=== PATIENT | male | born 1955 | race Caucasian/White ===

== ENCOUNTER 2016-08-18 14:18 | Inpatient (IN) | payer MEDICARE, OTHER ==
--- NOTE | ~2016-08-18 | DS ---
Unit #: [id number] #: [id number] Patient: BETTYE RAMIREZ [id number] [address] [place], [place] [address] [id number] MR#: [id number] NAME: BETTYE RAMIREZ ROOM: [facility] Age: 61 Sex: M Admission Date: 08/18/2016 : 1955 Discharge Date: 08/21/2016 Attending Physician: Lavinia Vail M.D. Primary Care Physician: Marquis Gutierrez M.D. DISCHARGE SUMMARY PRINCIPAL DIAGNOSES 1. Nausea, vomiting, likely multifactorial. 2. Acute hypoactive delirium. 3. Hypokalemia. 4. Memory loss, likely alcohol induced. 5. Status post fall without sequelae. 6. Hypocalcemia. 7. Chronic alcohol abuse without evidence of dependence or withdrawal. 8. Vitamin B12 deficiency with vitamin B12 level of 332. 9. History of deep venous thrombosis, maintained on Lovenox therapy. 10. Left breast mass requiring outpatient evaluation. 11. Depression. 12. Tobaccoism. CONSULTANTS Dr. Orr - Gastroenterology. PROCEDURES 1. EGD on August 20, 2016, with prepyloric antral moderate gastritis. No evidence of varies or portal hypertensive gastropathy. 2. Colonoscopy on August 20, 2016, with mild sigmoid diverticulosis. Diminutive descending colon polyp which was excised, pathology pending. No stigmata of liver disease. 3. CT of the head without contrast on August 18, 2016, with generalized atrophy. There is a small colloid cyst 4 mm in the roof of the anterior aspect of the third ventricle that is stable. 4. CT of abdomen and pelvis without contrast on August 18, 2016, with tiny diverticula in the descending distal colon and asymmetrical left breast tissue measuring 2.6 x 5 x 3.9 cm. Degenerative changes of the spine noted. 5. CT of the head without contrast on August 19, 2016, again without any acute abnormality. 6. MRI of the brain with and without contrast on August 19, 2016, with nonspecific white matter change. No evidence of hemorrhage or mass. CLINICAL HISTORY/HOSPITAL COURSE Mr. Ramirez is a 61-year-old male brought in by his family after he was having nausea, vomiting, weight loss and worsening memory symptoms. Please refer to H and P for further details. CT scan of the abdomen and pelvis and CT scan of the head in the emergency department are unremarkable. Lab work reveals some mild hypokalemia and there are concerns about possible urinary tract infection. The patient was admitted. Unit #: [id number] #: [id number] Patient: BETTYE RAMIREZ The patient was started on IV fluids and made NPO. Dr. Orr was consulted. The patient was started on a diet prior to EGD and colonoscopy and he was able to hold this down after IV hydration. EGD and colonoscopy were done without any significant findings. The patient will continue on PPI therapy at home. His nausea and vomiting have resolved and I think perhaps this is viral in origin to begin with but then exacerbated by some dehydration which is now resolved. In regards to patient's possible urinary tract infection, he was placed empirically on antibiotics but urine culture was never done. The patient has remained afebrile and I doubt he has any UTI. In regards to patient's memory loss, he underwent extensive workup and the only significant finding was a mildly low vitamin B12 level. MRI of the brain was negative. I have discussed with patient's sisters on several days but I suspect his underlying memory loss, which is short-term, is related to chronic alcohol abuse. Will continue on B12 and needs to continue alcohol cessation. The patient is currently living with his son and should be monitored close by family. There are plans initially to discharge patient to rehab but patient, today, is now more awake, ambulating in the [place] and will be discharged home. The patient's family does endorse some symptoms of depression. He doesn't like to leave the home, he is not eating much, he is sleeping more and I am uncertain whether this represents underlying depression, whether it is a side effect of alcohol or perhaps he is drinking because he is depressed. I have placed him on a low dose of Zoloft and I think mood can be monitored as an outpatient. DISCHARGE CONDITION Stable. DISCHARGE STATUS Discharge to home. DISCHARGE MEDICATIONS 1. Zoloft 25 mg p.o. daily with one refill. 2. Bactroban ointment topically to left knee twice daily for another five days. 3. Lovenox 80 mg subcutaneously every 24 hours. 4. Neurontin 600 mg, half a tablet p.o. t.i.d. 5. A daily multivitamin. 6. Omeprazole 20 mg daily. 7. Vitamin B12 1000 mcg p.o. daily. DISCHARGE INSTRUCTIONS The patient was instructed to follow a high protein diet, to refrain from any further alcohol or tobacco use. He can increase his activity as tolerated. FOLLOWUP The patient is to follow up with his primary care provider at [facility] in two weeks. Can re-evaluate his depression at that time. Unit #: [id number] #: [id number] Patient: BETTYE RAMIREZ Dictated by... Lavinia Vail M.D. KERRI/amy TD: 08/22/2016 08:01 JOB #: [id number] DISCHARGE SUMMARY Page 1 of 1 X Lavinia Vail MD X DISCHARGE SUMMARY
--- NOTE | ~2016-08-18 | CT4 ---
[facility] A Service of [facility] RADIOLOGY TEXT RESULTS PATIENT: BETTYE RAMIREZ LOCATION: C3A 307- : 55 UNIT #: [id number] AGE: [address]: Lavinia Vail MD SEX: M ORDER DR: [id number] [facility] [address] [facility]. [place], [place] [address] [id number] I MR#: [id number] Acc #: [id number] NAME: BETTYE RAMIREZ : 1955 SEX: M STUDY DATE/TIME: 08/18/2016 18:50 UNIT: C3A PCU ROOM: [facility] STUDY DESCRIPTION: CT Abd and Pelv Wo Cont Attending Physician: Lavinia Vail M.D. Ordering Physician: Marie Campos M.D. Primary Care Physician: Marquis Gutierrez M.D. MEDICAL IMAGING REPORT This report is preliminary unless electronic signature is present EXAM CT of the abdomen and pelvis without contrast dated 08/18/[address] abdomen and pelvis with contrast dated 11/05/2013 HISTORY Memory loss 4-6 weeks with confusion. Patient is forgetting to eat. Complains of nausea and vomiting, along with abdominal pain in the mid region for month. TECHNIQUE CT of the abdomen and pelvis were obtained without IV or oral contrast in the axial plane as per the protocol. Sagittal and coronal reformats were then obtained. This CT exam was performed with one or more of the following radiation dose reduction techniques: automatic exposure control, adjustment of mA and/or kV according to patient size, and iterative reconstruction. FINDINGS LOWER CHEST: Minimal subsegmental atelectasis/mild scarring in the right lung base. No patchy dense consolidation, pleural effusion or pneumothorax. Heart is of normal size. There is a small hiatal hernia. In the region of the left breast, there is asymmetrical prominence measuring 2.6 x 5.0 cm. It has a Hounsfield unit of 25, unlike a simple cyst. No adjacent significant underlying subcutaneous fat stranding is seen. There is a small 5.0 mm nodule noted along the posterior and superior aspect of the left side of this lesion in image 1, series 2. No significant adenopathy is noted in the visualized inferior bilateral axilla. ABDOMEN: Status post cholecystectomy. Appendix is within normal limits. [facility] A Service of [facility] RADIOLOGY TEXT RESULTS PATIENT: BETTYE RAMIREZ LOCATION: C3A PC 307-01 : 55 UNIT #: [id number] AGE: [address]: Lavinia Vail MD SEX: M ORDER DR: No renal stones or hydronephrosis. No ureteral stone or hydroureters. Lack of IV contrast limits evaluation. The liver, spleen, adrenal glands, pancreas do not demonstrate any significant abnormality in this noncontrasted study. Lack of oral contrast limits evaluation of bowel loops. No evidence of bowel obstruction, free fluid or free air. Diverticula are noted in the colon particularly in the descending and adjacent rectosigmoid colon along the left lower quadrant. They are very few in number without any evidence of acute inflammation. No evidence of aortic aneurysm. Atherosclerotic arteriovascular calcifications are noted involving the aorta and its branches. Degenerative changes are noted in the spine particularly in the lumbosacral region. PELVIS: Urinary bladder is predominantly decompressed. No urinary stones. Seminal vesicles are unremarkable. Central calcifications are in the prostate. Bowel loops are unremarkable too. IMPRESSION 1. No renal, ureteral or urinary bladder stones. 2. No hydronephrosis or hydroureters. 3. Status post cholecystectomy. Normal appendix. 4. Suspicious few tiny diverticula in the descending distal colon and adjacent rectosigmoid colon without evidence of acute diverticulitis. 5. There is asymmetrical prominent left breast tissue/lesion measuring 2.6 x 5.0 x 3.9 cm with another small 5.0 mm soft tissue nodule along the left posterolateral and superior aspect of this tissue. It was also noted in the prior CT from 11/05/2013 where it measured 2.3 x 4.3 cm and was included in completion then. Here it is incompletely included but it still appears to be slightly larger. It could be related to gynecomastia. Correlate clinically. 6. Mild degenerative changes in the spine. Dictated by... Liu Soto M.D. THIS IS AN ELECTRONICALLY VERIFIED REPORT Liu Soto M.D. at 08/21/2016 3:33 PM CPR/rickie TD: 08/19/2016 09:40 JOB #: [id number] MEDICAL IMAGING REPORT Page 1 of 1 COPY
--- NOTE | ~2016-08-18 | MR17 ---
[facility] A Service of [facility] RADIOLOGY TEXT RESULTS PATIENT: BETTYE RAMIREZ LOCATION: C3A 307- : 55 UNIT #: [id number] AGE: [address]: Lavinia Vail MD SEX: M ORDER DR: [id number] [facility] [address] [facility]. [place], [place] [address] [id number] I MR#: [id number] Acc #: [id number] NAME: BETTYE RAMIREZ : 1955 SEX: M STUDY DATE/TIME: 08/19/2016 11:31 UNIT: C3A PCU ROOM: [facility] STUDY DESCRIPTION: MR Brain WWo Contrast Attending Physician: Lavinia Vail M.D. Ordering Physician: Alyssa Willson M.D. Primary Care Physician: Marquis Gutierrez M.D. MRI CENTER REPORT This report is preliminary unless electronic signature is present. EXAM Brain MRI with and without contrast, date 08/19/2016. PROCEDURE Routine brain MR with and without contrast. COMPARISON Head CT dated 08/19/2016 and prior head CTs dating back to 09/13/2014. CLINICAL HISTORY 4-6 week history of memory loss; recent fall August 19. FINDINGS There is no MR evidence of acute ischemia. There is no restricted diffusion. There is no hydrocephalus or extraaxial fluid collection. A small colloid cyst at the foramen of Sara is redemonstrated, as seen on CT. It measures about 4 mm in maximal dimension. There is volume loss, but no hydrocephalus. Postcontrast images show no mass or abnormal enhancement. There are minimal nonspecific white matter changes, but no acute intracranial abnormality is seen. Normal flow voids are seen in the cerebral vessels. Incidental note made of right sphenoid sinus mucosal thickening. IMPRESSION Mild nonspecific white matter change, but no hemorrhage or mass or acute ischemia, and though there is a small about 4 mm colloid cyst at the foramen of Sara, unchanged since CTs dating back to at least September 18, 2014, there is no hydrocephalus or other acute abnormality. Dictated by... Melo Nunes M.D. [facility] A Service of [facility] RADIOLOGY TEXT RESULTS PATIENT: BETTYE RAMIREZ LOCATION: [facility]- : 55 UNIT #: [id number] AGE: [address]: Laivnia Vail MD SEX: M ORDER DR: THIS IS AN ELECTRONICALLY VERIFIED REPORT Melo Nunes M.D. at 08/21/2016 4:28 PM EDIN/daniel TD: 08/19/2016 16:07 JOB #: [id number] MRI CENTER REPORT Page 1 of 1 COPY
--- NOTE | ~2016-08-18 | CO ---
Unit #: [id number] #: [id number] Patient: BETTYE RAMIREZ [id number] [address] [place], [place] [address] [id number] I MR#: [id number] NAME: BETTYE RAMIREZ ROOM: 307 Age: 61 Sex: M Admission Date: 08/18/2016 : 1955 Attending Physician: Lavinia Vail M.D. Primary Care Physician: Marquis Gutierrez M.D. Consultation Date: 08/19/2016 CONSULTATION REPORT PRIMARY CARE PHYSICIAN Marquis Gutierrez M.D. REASON FOR CONSULTATION Intractable nausea, vomiting, diarrhea, weight loss. HISTORY OF PRESENT ILLNESS Mr. Ramirez is a 61-year-old white gentleman, who is a heavy drinker of alcohol. The patient has presented with history of DVT. He has longstanding history of deep vein thrombosis, on long-term anticoagulation with Lovenox. He presents with couple of months history of nausea, vomiting, diarrhea, and weight loss about 20 pounds. There is no history of dysphagia or abdominal pain nor any history of overt GI bleed. He does drink 6 to 12 beers on a daily basis. The patient is extremely poor historian. PAST MEDICAL HISTORY Significant for chronic ethanol abuse; history of cardiac ablation in the past; also history of DVT and superficial thrombosis, on long-term anticoagulation. PAST SURGICAL HISTORY Included cholecystectomy. MEDICATIONS At home included Lovenox 80 mg subcutaneously daily, Neurontin 600 mg p.o. t.i.d., Robaxin, Prilosec 20 mg p.o. daily. ALLERGIES He has no known drug allergies. FAMILY HISTORY Significant for congestive heart failure and cardiomyopathy. SOCIAL HISTORY Lives at home with his son. He drinks between 6 to 12 beers a day and smokes 1 to 1-1/2 pack of cigarette daily. REVIEW OF SYSTEMS Detailed review of organ systems does reveals significant weight loss about 20 pounds. There is no history of fever, chills, or rigors. No history of headache, seizures, chest pain, or syncope. No history of cough, expectoration, or hemoptysis. No history of dysuria, hematuria, or pyuria. No history of focal seizures or extremity weakness. Unit #: [id number] #: [id number] Patient: BETTYE RAMIREZ PHYSICAL EXAMINATION GENERAL: He is awake, alert, and oriented. VITAL SIGNS: Stable with a temperature of 98.3, pulse is 65 per minute and regular, respiratory rate is 18, blood pressure is 120/87. He weighs 182 pounds, baseline weight has been about 204 pounds in the past. HEENT: He has mild pallor. There being no icterus, lymphadenopathy, or peripheral edema. CARDIOVASCULAR: Normal heart sounds. No murmurs. LUNGS: Auscultation over the lungs reveal normal breath sounds. Good air entry. ABDOMEN: Soft and nontender. Liver and spleen are not palpable. Bowel sounds normal. DIAGNOSTIC STUDIES LABORATORY RESULTS: Shows a CBC which is completely normal and serum potassium of 2.8. His albumin is 3.3. AST and ALT are normal. Alkaline phosphatase is 100. Ammonia level is normal. CLINICAL IMPRESSION The patient with significant nausea and vomiting, but symptoms suggestive of gastric outlet obstruction, also has significant weight loss on a background of ethanol abuse. He has never done a screening colonoscopy in the past. Under the circumstances, it will be reasonable for him to proceed with an upper endoscopy and a colonoscopy in the next 12 to 24 hours. The pros and cons of procedure, potential risks, complications discussed with the patient and the family, and they were reassured. Thank you very much for asking me to see this pleasant gentleman. I appreciate the consult. Dictated by... Sharath Busch/carlos TD: 08/21/2016 02:40 JOB #: [id number] CC: Sharath Jones M.D. CONSULTATION REPORT Page 1 of 1 X Luis Orr MD X CONSULTATION REPORT
--- NOTE | ~2016-08-18 | CT71 ---
[facility] A Service of [facility] RADIOLOGY TEXT RESULTS PATIENT: BETTYE RAMIREZ LOCATION: [facility] : 55 UNIT #: [id number] AGE: [address]: Lavinia Vail MD SEX: M ORDER DR: [id number] [facility] [address] [facility]. [place], [place] [address] [id number] I MR#: [id number] Acc #: [id number] NAME: BETTYE RAMIREZ : 1955 SEX: M STUDY DATE/TIME: 08/18/2016 16:09 UNIT: A PC ROOM: [facility] STUDY DESCRIPTION: CT Head Wo Contrast Attending Physician: Alyssa Willson M.D. Ordering Physician: Marie Campos M.D. Primary Care Physician: Marquis Gutierrez M.D. MEDICAL IMAGING REPORT This report is preliminary unless electronic signature is present EXAM CT brain without contrast media, 08/18 COMPARISON 09/13/2014 HISTORY Memory loss 4-6 weeks, confusion. TECHNIQUE Axial imaging of the brain was performed without contrast media. This CT exam was performed with one or more of the following radiation dose reduction techniques: Automatic exposure control, adjustment of mA and/or kV according to patient size, and iterative reconstruction. FINDINGS Ventricular size and configuration remains normal. Examination shows a small hyperdense lesion in the anterior roof of the third ventricle measuring 4 mm in size. It has not changed and is consistent with a small colloid cyst. No other mass lesions, mass effect, acute hemorrhage or edema. There is evidence of mucosal disease in the right maxillary and right sphenoid sinus. CONCLUSION 1. Generalized atrophy. 2. Small colloid cyst measuring 4 mm in the roof of the anterior aspect of the third ventricle, unchanged. 3. Right maxillary and right sphenoid sinus disease. Dictated by... Erik Andrade M.D. [facility] A Service of [facility] RADIOLOGY TEXT RESULTS PATIENT: BETTYE RAMIREZ LOCATION: [facility] : 55 UNIT #: [id number] AGE: [address]: Lavinia Vail MD SEX: M ORDER DR: THIS IS AN ELECTRONICALLY VERIFIED REPORT Erik Andrade M.D. at 08/19/2016 7:13 AM TIMOTHY/anjali TD: 08/19/2016 03:28 JOB #: [id number] MEDICAL IMAGING REPORT Page 1 of 1 COPY
--- NOTE | ~2016-08-18 | EKG ---
PATIENT: BETTYE RAMIREZ UNIT #: [id number] Ventricular Rate: 68 BPM Atrial Rate: 68 BPM P-R Interval: 154 ms QRS Duration: 82 ms Q-T Interval: 420 ms QTC Calculation(Bezet): 446 ms P Durham: 44 degrees Calculated R Durham: 26 degrees Calculated T Durham: 50 degrees Diagnosis Line: Normal sinus rhythm Diagnosis Line: Normal ECG Diagnosis Line: When compared with ECG of 15-AUG-2014 17:46, Diagnosis Line: No significant change was found Diagnosis Line: Confirmed by KLEBER LAZO MD ([id number]) on Diagnosis Line: 08/18/2016 10:20:57 PM INTERPRETING MD: ZEHRA
--- NOTE | ~2016-08-18 | CO ---
Unit #: [id number] #: [id number] Patient: BETTYE RAMIREZ [id number] [address] [place], [place] [address] [id number] I MR#: [id number] NAME: BETTYE RAMIREZ ROOM: 307 Age: 61 Sex: M Admission Date: 08/18/2016 : 1955 Attending Physician: Lavinia Vail M.D. Primary Care Physician: Marquis Gutierrez M.D. CONSULTATION REPORT DICTATED FOR Luis Orr M.D. PRIMARY CARE PHYSICIAN Marquis Gutierrez M.D. REASON FOR CONSULTATION Nausea, vomiting, and weight loss. HISTORY OF PRESENT ILLNESS The patient is a 61-year-old male with past medical history of DVT, on chronic anticoagulation and alcohol abuse. The patient has been admitted with a 2-month history of persistent nausea, vomiting, and weight loss. The patient is a very poor historian, most of the history is obtained from his sister and daughter at the bedside. According to his family, he had been doing well up until about 2 months ago when he started to have persistent nausea, vomiting, and memory issues. His appetite has also decreased and he has lost about 20 pounds in 2 months. He also has been having intermittent diarrhea mostly postprandial. There is no history of fever, chills, abdominal pain, or overt gastrointestinal blood loss in the form of hematemesis, melena, or hematochezia. PAST MEDICAL HISTORY Includes chronic alcohol abuse, history of cardiac ablation, DVT on chronic anticoagulation. PAST SURGICAL HISTORY Cholecystectomy and cardiac ablation. ALLERGIES No known drug allergies. HOME MEDICATIONS Include Prilosec, Lovenox, Neurontin, and Robaxin. FAMILY HISTORY None for colon or pancreatic cancer, or liver disease. SOCIAL HISTORY The patient lives with his son. He drinks between 6 to 12 beers a day. He smokes 1 to 2 packs of tobacco a day. No history of illicit drugs. REVIEW OF SYSTEMS Detailed review of system is difficult to obtain from the patient, as he Unit #: [id number] #: [id number] Patient: BETTYE RAMIREZ is a very poor historian. Dictated by... MINERVA Rangel/gamaliell TD: 08/20/2016 02:35 JOB #: [id number] CONTINUATION PHYSICAL EXAMINATION GENERAL: The patient is awake, alert, ambulatory. He does have mild confusion. VITAL SIGNS: Stable with temperature 97.3, blood pressure 111/75, heart rate 65, respirations 18. HEENT: There is no pallor, no scleral icterus, no lymphadenopathy. CARDIOVASCULAR: Regular rate and rhythm. LUNGS: Clear to auscultation bilaterally. ABDOMEN: Soft, nontender. Liver and spleen are not palpable. Bowel sounds are normal. DIAGNOSTIC STUDIES LABORATORY RESULTS: Basic metabolic panel notable for potassium 2.8, otherwise unremarkable. LFTs on admission were within normal limits. INR 1.2. CBC within normal limits. Urinalysis show 1+ leukocyte esterase, positive nitrites, trace protein, and culture is pending at this time. IMAGING STUDIES: Abdominal CT showed diverticulosis, no evidence of acute inflammation. Head CT showed no acute abnormality. Brain MRI showed mild nonspecific white matter change, but no acute findings. CLINICAL IMPRESSION AND PLAN The patient with persistent nausea, vomiting, diarrhea, and weight loss. Differentials include peptic ulcer disease, gastric outlet obstruction, inflammatory bowel disease, and also malignancy. It is noteworthy, the patient has never had a colonoscopy in the past. In this case an upper GI endoscopy and colonoscopy are recommended. The patient and plan of care discussed in detail with Dr. Orr. For further recommendations to follow. Thank you very much for asking us to see this patient. We appreciate the consult. Dictated by.Yudith. MINERVA Rangel/carlos TD: 08/20/2016 03:18 JOB #: [id number] Unit #: [id number] #: [id number] Patient: BETTYE RAMIREZ CONSULTATION REPORT Page 1 of 1 X X CONSULTATION REPORT
--- NOTE | ~2016-08-18 | OR ---
Unit #: [id number] #: [id number] Patient: BETTYE RAMIREZ [id number] [address] [address] [id number] I MR#: [id number] NAME: BETTYE RAMIREZ ROOM: [facility] Date of Procedure: 08/20/2016 Admission Date: 08/18/2016 Surgeon: Luis Orr M.D. : 1955 Attending Physician: Lavinia Vail M.D. Primary Care Physician: Marquis Gutierrez M.D. OPERATIVE REPORT ADDITIONAL ATTENDING PHYSICIAN Lavinia Vail M.D. PREOPERATIVE DIAGNOSES Nausea and vomiting as well as significant weight loss and diarrhea. PROCEDURE PERFORMED Upper gastrointestinal endoscopy and biopsy as well as colonoscopy and biopsies. POSTOPERATIVE DIAGNOSES For upper endoscopy: 1. The patient had prepyloric antral moderate gastritis. This was in the form of erythema, erythematous streaks, and linear erosions in the antral area. Otherwise, examination normal up to third part of duodenum. Biopsies obtained from the antrum for CLOtest. Specifically, no esophageal varices nor any changes of portal hypertensive gastropathy were seen. For colonoscopy: 1. Mild sigmoid diverticulosis. 2. Single diminutive descending colon polyp, which was a 1 cm in size. It was removed using cold biopsy forceps. 3. Rest of the examination up to cecum and terminal ileum was normal. The quality of the prep was good. Multiple random colonic biopsies obtained from throughout the colon to rule out microscopic or collagenous colitis. 4. It is noteworthy that the patient had no stigmata of liver disease in the upper gastrointestinal endoscopy. SEDATION USED MAC. RECOMMENDATIONS Resume Lovenox, high protein diet and CBC and CMP in the morning. DESCRIPTION OF PROCEDURE Following detailed explanation of the potential risks and complications of an upper endoscopy and a colonoscopy, namely perforation, bleeding, and complications related to sedation, the patient was brought to GI lab and laid in the left lateral decubitus position. Lubricated tip of the Olympus video upper endoscope was passed through bite block into the proximal esophagus under direct vision. The entire esophageal mucosa was Unit #: [id number] #: [id number] Patient: BETTYE RAMIREZ examined and appeared normal. Z-line was nicely demarcated. There being no esophagitis or hiatus hernia. The patient did not have any esophageal varices. The scope was advanced into the gastric cavity and the latter was insufflated. Mucosa of the fundus, body, and antrum examined. Prepyloric antral erythema erosions and erythematous streaks noted indicating antral gastritis. Pylorus was intubated with visualization of normal duodenal bulb and second and third part of the duodenum. Upon withdrawal and retroflexion, incisura, cardia, and greater curve examined and no additional findings noted. Biopsies obtained from the antrum for CLOtest. The scope was then withdrawn in the distal esophagus. The entire esophageal mucosa was examined all the way up to pharynx. No additional findings noted. The examination table was then turned by 180 degrees and the patient was positioned for a colonoscopy. A digital rectal examination was performed, which was normal. Lubricated tip of the Olympus video colonoscope was inserted through the anus and advanced under direct vision. The scope was advanced and passed up to sigmoid into descending colon. Multiple small to medium-sized diverticula were seen in this area. The scope tip was then navigated all the way up to cecum with visualization of ileocecal valve and the appendiceal orifice. Preparation was good with good visualization and photodocumentation was obtained. Last few inches of terminal ileum also visualized after intubation of the ileocecal valve and appeared normal. Successive segments of the colonic mucosa were examined upon withdrawal and appeared unremarkable except for a single diminutive polyp in the descending colon. The latter was removed using cold biopsy forceps. Multiple random colonic biopsies obtained from throughout the colon to rule out microscopic or collagenous colitis. Other than these left-sided diverticula, no other additional abnormalities noted. The patient did not have any hemorrhoids at anal verge. The scope was then withdrawn. The patient returned to the recovery area. He tolerated the procedure without any postprocedure complications. Dictated by... Sharath Busch/carlos TD: 08/21/2016 01:22 JOB #: [id number] Alyssa Willson M.D. OPERATIVE REPORT Page 1 of 1 X Luis Orr MD PROCEDURE OPERATIVE NOTE
--- NOTE | ~2016-08-18 | A ---
[facility] Nutrition Therapy DATE: 08/19/16 Patient: BETTYE RAMIREZ Physician: DARRIAN Address: [address] Room/Bed: [address] [place] [address], Zip: [place] [address] Admit Date: 08/18/16 Date of : 55 Height: 5 11 Weight: 180 81.8 NUTRITIONAL ASSESSMENT: REASON: 3 nutritional risk points re: 20# unintentional weight loss Dx: Altered mental status, nausea/vomiting, weight loss, ETOH abuse PMH: DVT, cardiac ablasion, cholecystectomy Anthropometrics: ht: 5'11" wt: 180# BMI 25 Labs: K+ 2.8, BUN <5, Creat 0.4, Ca++ 8.1, Alb 3.3, NH3+ <9, Lip 17 Meds: protonix, nicotine transdermal, mag-sulfate, rocephin, neurotin, zofran, ativan, NaCl I/O & Bowel function: 900/1. BM 08/18 (diarrhea) Skin Integrity: scab- left knee, tattoo- back/arms Diet: NPO Assessment: Chart reviewed, events noted. 61 y/o male admitted for altered mental status, n/v, and weight loss. RD international trade specialist spoke with pt and pt's sister at bedside. Pt's sister reported that the pt has lost 20# in the past few months due to poor appetite and n/v/d when trying to eat. He has also had confusion and memory loss. She states that the pt has not had a full meal in a several days, only tolerating a small amount of liquids. The pt is currently NPO awaiting a possible EGD. RD international trade specialist discussed ordering supplements for the pt once his diet is advanced, and the pt's sister agreed to ensure and magic Cup. Please see recommendations. RD will continue to follow. Dx: 1) Inadequate oral intake r/t poor appetite, n/v/d AEB pt reported poor intake, unintented weight loss 2) Unintentional weight loss r/t poor appetite, n/v/d AEB pt reported 20# (10% BW) weight loss Intervention: 1. supplements once diet advances Monitoring, Evaluation and Goals: 1. Oral intake; once diet is advanced, tolerate/consume >50% of all meals and/or supplements [facility] Nutrition Therapy DATE: 08/19/16 Patient: BETTYE RAMIREZ Physician: DARRIAN Address: [address] Room/Bed: [address] [place] [address], Zip: [place] [address] Admit Date: 08/18/16 Date of : [birth year] Height: 5 11 Weight: 180 81.8 2. Weight; prevent further unintentional weight loss, promote healthy weight maintenance 3. GI; promote regular GI function 4. Improve labs; K+, BUN, Creat, Ca++, Alb, NH3+, Lip Recommendations: 1. Once diet is advanced to clear liquid diet, please order ensure clear apple TID. 2. Once diet is advanced to full liquid diet or solid foods, please order ensure vanilla TID + Magic Cup with dinner. RD will follow up to make appropriate dietary recommendations pending results of EGD. 3. Encourage adequate PO intake as tolerated once diet advances. 4. Consider adding a MVI + minerals to the pt's medication regimen. RD will f/u per protocol as pt is at moderate nutritional risk. Respectfully, YURY LYMAN, internet security specialist Vivi Gray, SANDIE, LD [employer] [facility] cc: client file
--- NOTE | ~2016-08-18 | CT71 ---
[facility] A Service [facility] RADIOLOGY TEXT RESULTS PATIENT: BETTYE RAMIREZ LOCATION: [facility] 307- : [birth year] UNIT #: [id number] AGE: [address]: Lavinia Vail MD SEX: M ORDER DR: [id number] [facility] [address] [facility]. [place], [place] [address] [id number] I MR#: [id number] Acc #: [id number] NAME: BETTYE RAMIREZ : 1955 SEX: M STUDY DATE/TIME: 08/19/2016 UNIT: [address] ROOM: [facility] STUDY DESCRIPTION: CT Head Wo Contrast Attending Physician: Lavinia Vail M.D. Ordering Physician: Alyssa Willson M.D. Primary Care Physician: Marquis Gutierrez M.D. MEDICAL IMAGING REPORT This report is preliminary unless electronic signature is present EXAM Head CT 08/19/2016 at 03:17 INDICATIONS Fell this morning at 03:00 a.m. Pain in the forehead. TECHNIQUE Axial images were obtained from the base to the vertex without contrast. This CT exam was performed with one or more of the following radiation dose reduction techniques: automatic exposure control, adjustment of mA and/or kV according to patient size, and iterative reconstruction. COMPARISON Comparison is made with 08/18/2016. FINDINGS Again seen is generalized atrophy. Ventricular size and configuration are stable. Small potential colloid cyst in the third ventricle is stable. Atherosclerotic calcifications are present in the carotid siphons. No acute infarct or hemorrhage is seen. There are no skull fractures. IMPRESSION No acute abnormality. No change from yesterday's exam. Dictated by... Antwan Bates Jr., M.D. THIS IS AN ELECTRONICALLY VERIFIED REPORT Antwan Bates Jr., M.D. at 08/19/2016 9:23 PM FILEMON/daniel TD: 08/19/2016 12:51 [facility] A Service of [facility] RADIOLOGY TEXT RESULTS PATIENT: BETTYE RAMIREZ LOCATION: [facility] 307-01 : [birth year] UNIT #: [id number] AGE: [address]: Lavinia Vail MD SEX: M ORDER DR: RAVINDER #: [id number] MEDICAL IMAGING REPORT Page 1 of 1 COPY
--- NOTE | ~2016-08-18 | HP ---
Unit #: [id number] #: [id number] Patient: BETTYE RAMIREZ [id number] [facility]. [place], [place] [address] [id number] I MR#: [id number] NAME: BETTYE RAMIREZ ROOM: [facility] Age: 61 Sex: M Admission Date: 08/18/2016 : 1955 Attending Physician: Alyssa Willson M.D. Primary Care Physician: Marquis Gutierrez M.D. HISTORY AND PHYSICAL CHIEF COMPLAINT Intractable nausea and vomiting with weight loss and worsening memory. HISTORY OF PRESENT ILLNESS This pleasant 61-year-old male with DVTs and alcohol abuse is admitted for two months of nausea and vomiting with weight loss and memory issues. The patient himself is a somewhat poor historian, and most of the history is obtained from family by bedside. The patient was in his usual state of health until two months prior to admission when he developed nonbloody nausea, vomiting, anorexia, and a 20-pound weight loss. Denies abdominal pain with the above. Also notes some lightheadedness and dizziness which is mainly postural but also can occur at rest and can be associated with diplopia. Occasional epistaxis. He denies abdominal pain with the above. He was seen at the [facility] a few days ago, and his Lovenox was decreased from twice a day dosing to once a day dosing. Prilosec was added. He continued with symptoms this weekend, and therefore, the family brought him to this emergency department tonight where his workup is fairly unremarkable for a definite cause of his symptoms. His potassium was noted to be low, and he might have a mild UTI. In the ER, he was treated with IV fluids, Zofran, IV Protonix, potassium rally pack, and IV Ativan. He does drink fairly heavily, six to 12 beers a day, but has not drank alcohol for the past three to four days and denies symptoms of withdrawal. PAST MEDICAL HISTORY 1. Chronic alcohol abuse. 2. History of cardiac ablation performed in [place] at the [facility]. 3. History of right leg DVT and superficial thrombosis of the right upper arm after IV medications according to old records. 4. Cholecystectomy. ALLERGIES No known drug allergies. HOME MEDICATIONS 1. Prilosec recently added 20 mg daily. 2. Lovenox decreased to 80 mg subcutaneous daily. 3. Neurontin 600 mg t.i.d. p.r.n. 4. Robaxin. FAMILY HISTORY Cardiomyopathy and congestive heart failure. Unit #: [id number] #: [id number] Patient: BETTYE RAMIREZ SOCIAL HISTORY The patient is living with his son. He drinks between six to 12 beers a day but has not used alcohol for the past three to four days. He smokes one and a half packs per day of tobacco. REVIEW OF SYSTEMS Difficult to obtain as patient himself is a poor historian. PHYSICAL EXAMINATION GENERAL: A pleasant, 61-year-old male who currently is in no acute distress. VITAL SIGNS: Temperature 98.1, pulse 75, respirations 16, blood pressure 109/76, and O2 saturation is 100% on room air. HEENT: Eyes PERRLA. Extraocular muscles are intact. Pharynx is benign. NECK: Supple without adenopathy or thyromegaly. CHEST: Clear. CARDIAC: Normal S1 and S2, without S3, S4, or murmur. ABDOMEN: Bowel sounds are present. Mild hepatomegaly noted on exam. Nontender. No masses. BREASTS: Palpable breast mass at 6 o'clock. It is well circumscribed. EXTREMITIES: Without clubbing, cyanosis, or edema. NEUROLOGIC: Patient is awake and alert. He is oriented to person and place but not to year. His cranial nerves are intact. He has equal strength throughout. A slight essential tremor with [id number]. Negative pronator drift. He is able to stand without assistance. DIAGNOSTIC STUDIES ADMISSION LABORATORY: Hematocrit is 48 with normal white count and platelet count. SMA-12 with sodium of 133, potassium 3, chloride 95, albumin 3.3, and alkaline phosphatase 100. Ammonia level is less than 9. Alcohol less than 5. ABG with pH of 7.57, PCO2 of 28, PO2 of 94, and O2 saturation 99.1% on room air. His cardiac markers are negative. Urine toxicology screen positive for marijuana. Urinalysis positive leukocyte esterase, nitrites, and protein, with 2-5 white cells. IMAGING: Head CT shows atrophy and sinus disease. CT scan of the abdomen and pelvis shows a breast mass which was previously noted on November 15, 2013, and slightly increased in size. CARDIOLOGY: EKG normal sinus rhythm, rate 68, normal appearing. ASSESSMENT 1. Intractable nausea and vomiting with weight loss. 2. Memory loss for the past two months which in part may be related to ethyl alcohol. 3. History of ethyl alcohol abuse, none for the past three to four days. 4. History of deep venous thromboses, on Lovenox. 5. Status post cardiac radiofrequency ablation. 6. Hypokalemia. 7. Left breast mass on exam. 8. Questionable urinary tract infection. PLANS 1. IV fluids. 2. Replace potassium and check magnesium. 3. Check thyroid function tests, VDRL, B12 level, and MRI scan of the brain. 4. Vitamins. Unit #: [id number] #: [id number] Patient: BETTYE RAMIREZ 5. GI to see in consultation. 6. Will need ultrasound and possible biopsy of breast mass at some point. 7. Decrease sedatives. 8. Further workup and consultants depending on above. 1. Dictated by Sharath Arora/uriel TD: 08/18/2016 22:38 JOB #: [id number] HISTORY AND PHYSICAL Page 1 of 1 X Alyssa Willson MD X HISTORY AND PHYSICAL
[~2016-08-18 14:18] MED LIST: ASPIRIN81 M1 PO; BENTYL20 MG PO; BP PILL; CARDIZEM CD180 M1 PO; COMBIVENT U/D3 M1 INH; KEFLEX500 MG PO; LEVSIN0.125 M2 PO; MULTI-VITAMIN1 EAC1 PO; NEURONTIN300 MG PO; NEURONTIN600 MG PO; OMEPRAZOLE40 MG PO; PRILOSEC PO; ROBAXIN500 MG PO; ROBITUSSIN A-C S5 ML PO; TESSALON200 MG PO; TYLENOL325 M1 PO; ULTRAM PO; VICODIN 5/1 TAB 5/50 PO; VOLTAREN75 MG PO; XARELTO15 MG PO; XARELTO20 MG PO
[2016-08-18 16:45] LABS: BASOPHIL% 0.8 % (0-2.5); EOSINOPHIL# 0.1 X10e3 (0-0.7); EOSINOPHIL% 1.1 % (0.0-7.0); HEMOGLOBIN 16.2 gm/dL (13.0-16.0); LYMPHOCYTE# 1.3 X10e3 (1.0-3.5); LYMPHOCYTE% 20.9 % (17.0-45.0); MEAN CELL VOLUME 97.6 FL (83-96); MEAN CORPUSCULAR HGB CONC 33.8 g/dL (30-36); MEAN PLATELET VOLUME 8.1 FL (6.5-11.5); MONOCYTE# 0.4 X10e3 (0-1.0); NEUTROPHIL# 4.5 X10e3 (1.5-7.1); NEUTROPHIL% 71.2 % (40-75); PLATELET COUNT 220 X10e3 (140-420); RED BLOOD COUNT 4.92 X10e (3.90-5.60); RED CELL DISTRIBUTION WIDTH 14.9 % (11.0-15.5); WHITE BLOOD COUNT 6.3 X10e3 (4.0-10.5)
[2016-08-18 16:46] LABS: DIFF IND NO
[2016-08-18 17:08] LABS: INR 1.2; PARTIAL THROMBOPLASTIN TIME 28.5 SECONDS (23.5-31.3); PROTHROMBIN TIME (PATIENT) 12.6 SECONDS (10.0-11.7)
[2016-08-18 17:12] LABS: ALBUMIN SERUM 3.3 g/dL (3.5-5.0); ALKALINE PHOSPHATASE 100 U/L (32-92); ALT (SGPT) 21 U/L (10-40); AST (SGOT) 34 U/L (10-42); BILIRUBIN, DIRECT 0.2 mg/dL (0.0-0.2); BILIRUBIN,INDIRECT 0.7 mg/dL (0.0-0.9); BILIRUBIN,TOTAL 0.9 mg/dL (0.2-2.0); BLOOD UREA NITROGEN <5 mg/dL (9-23); BUN/CREATININE RATIO 7.14; CALCIUM SERUM 8.8 mg/dL (8.4-10.2); CARBON DIOXIDE 27 mmol/L (22-31); CHLORIDE 95 mmol/L (100-111); CREATININE SERUM 0.7 mg/dL (0.6-1.4); GLOM FILT RATE Estimated 101.9 mL/min (>60); GLUCOSE FASTING 107 mg/dL (70-110); SODIUM 133 mmol/L (135-145)
[2016-08-18 17:13] LABS: ALCOHOL BLOOD <5 mg/dL (0)
[2016-08-18 17:45] LABS: ARTERIAL BLD GAS O2 SATURATION 99.1 % (90.0-100.0); ARTERIAL BLOOD GAS CARBOXY HB 3.4 %sat (0.0-9.0); ARTERIAL BLOOD GAS HCO3 25.6 mmol/L; ARTERIAL BLOOD GAS MET HB 0.3 %sat (0.0-2.0); ARTERIAL BLOOD GAS PCO2 27.8 mmHg (35.0-45.0); ARTERIAL BLOOD GAS PO2 93.9 mmHg (80.0-100); ARTERIAL BLOOD GAS pH 7.572 (7.350-7.450)
[2016-08-18 17:46] LABS: ARTERIAL BLOOD GAS ALLEN TEST NORMAL; ARTERIAL BLOOD GAS ART SITE RIGHT RADIAL; ARTERIAL DRAW? YES
[2016-08-18 17:55] LABS: URINE SOURCE CLEAN CATCH
[2016-08-18 18:03] LABS: URINE APPEARANCE CLEAR; URINE BLOOD NEG (NEG); URINE COLOR ORANGE; URINE GLUCOSE NEG (NEG); URINE KETONE TRACE (NEG); URINE LEUKOCYTE ESTERASE 1+ (NEG); URINE NITRATE POS (NEG); URINE PROTEIN TRACE (NEG); URINE SPECIFIC GRAVITY 1.019 (1.003-1.035)
[2016-08-18 18:06] LABS: URINE BACTERIA AUWI NEG (NEGATIVE); URINE SQUAMOUS EPITHELIAL CELL NONE SEEN /[HPF]
[2016-08-18 18:07] LABS: URINE BILIRUBIN NEG (NEG)
[2016-08-18 18:08] LABS: CULTURE INDICATED? NO
[2016-08-18 18:10] LABS: POC - CKMB <1.0 ng/mL (0.0-7.9); POC - TROPONIN <0.05 ng/mL (<=0.05)
[2016-08-18 18:12] LABS: POC - TROPONIN <0.05 ng/mL (<=0.05)
[2016-08-18 18:14] LABS: AMPHETAMINE NEG (NEG); BARBITURATES NEG (NEG); BENZODIAZEPINES NEG (NEG); COCAINE NEG (NEG); MARIJUANA POS (NEG); OPIATES NEG (NEG); TRICYCLIC ANTIDEPRESSANTS NEG (NEG); U METHADONE NEG (NEG)
[2016-08-18] MEDS ORDERED: OMEPRAZOLE20 M2 PO (21:22)
[2016-08-18] MEDS ORDERED: NEURONTIN600 MG PO (21:22)
[2016-08-18] MEDS ORDERED: LOVENOX80 MG/0.8 INJ (21:23)
[2016-08-18] MEDS ORDERED: ROBAXIN (21:23)
[2016-08-18] MEDS ORDERED: PATIENT'S PHARMACY (21:24)
[2016-08-19 05:33] LABS: HEMATOCRIT 41.2 % (38.0-50.0); MEAN CELL VOLUME 97.5 FL (83-96); MEAN CORPUSCULAR HEMOGLOBIN 32.8 PG (28-34); MEAN CORPUSCULAR HGB CONC 33.7 g/dL (30-36); MEAN PLATELET VOLUME 8.6 FL (6.5-11.5); RED BLOOD COUNT 4.23 X10e (3.90-5.60); RED CELL DISTRIBUTION WIDTH 14.8 % (11.0-15.5); WHITE BLOOD COUNT 4.9 X10e3 (4.0-10.5)
[2016-08-19 05:58] LABS: HEMOGLOBIN 13.9 gm/dL (13.0-16.0)
[2016-08-19 06:11] LABS: THYROID STIMULATING HORMONE 1.88 uIU/ml (0.34-5.60)
[2016-08-19 06:18] LABS: FREE THYROXIN (T4) 0.88 ng/dL (0.58-1.64)
[2016-08-19 06:29] LABS: CALCIUM SERUM 8.1 mg/dL (8.4-10.2); CARBON DIOXIDE 27 mmol/L (22-31); CHLORIDE 101 mmol/L (100-111); CREATININE SERUM 0.4 mg/dL (0.6-1.4); GLOM FILT RATE Estimated 128.2 mL/min (>60); GLUCOSE FASTING 81 mg/dL (70-110); MAGNESIUM 1.9 mg/dL (1.6-3.0); SODIUM 136 mmol/L (135-145)
[2016-08-19 06:32] LABS: BLOOD UREA NITROGEN <5 mg/dL (9-23)
[2016-08-19 06:34] LABS: POTASSIUM 2.8 mmol/L (3.5-5.1)
[2016-08-20 05:31] LABS: BASOPHIL# 0.1 X10e3 (0-0.3); EOSINOPHIL# 0.1 X10e3 (0-0.7); EOSINOPHIL% 2.6 % (0.0-7.0); HEMATOCRIT 41.6 % (38.0-50.0); LYMPHOCYTE# 1.1 X10e3 (1.0-3.5); LYMPHOCYTE% 21.6 % (17.0-45.0); MEAN CELL VOLUME 96.8 FL (83-96); MEAN CORPUSCULAR HEMOGLOBIN 32.5 PG (28-34); MEAN CORPUSCULAR HGB CONC 33.6 g/dL (30-36); MEAN PLATELET VOLUME 8.3 FL (6.5-11.5); MONOCYTE# 0.4 X10e3 (0-1.0); MONOCYTE% 7.2 % (3.0-12.0); NEUTROPHIL# 3.5 X10e3 (1.5-7.1); NEUTROPHIL% 67.6 % (40-75); PLATELET COUNT 170 X10e3 (140-420); RED CELL DISTRIBUTION WIDTH 14.7 % (11.0-15.5); WHITE BLOOD COUNT 5.1 X10e3 (4.0-10.5)
[2016-08-20 05:34] LABS: DIFF IND NO
[2016-08-20 07:21] LABS: BLOOD UREA NITROGEN <5 mg/dL (9-23); BUN/CREATININE RATIO 8.33; CALCIUM SERUM 7.8 mg/dL (8.4-10.2); CARBON DIOXIDE 24 mmol/L (22-31); CHLORIDE 102 mmol/L (100-111); CREATININE SERUM 0.6 mg/dL (0.6-1.4); GLOM FILT RATE Estimated 108.6 mL/min (>60); GLUCOSE FASTING 92 mg/dL (70-110); MAGNESIUM 2.1 mg/dL (1.6-3.0); POTASSIUM 3.5 mmol/L (3.5-5.1); SODIUM 132 mmol/L (135-145)
[2016-08-21 06:14] LABS: HEMATOCRIT 40.9 % (38.0-50.0); HEMOGLOBIN 13.6 gm/dL (13.0-16.0); MEAN CELL VOLUME 98.3 FL (83-96); MEAN CORPUSCULAR HEMOGLOBIN 32.7 PG (28-34); MEAN CORPUSCULAR HGB CONC 33.3 g/dL (30-36); MEAN PLATELET VOLUME 9.2 FL (6.5-11.5); RED BLOOD COUNT 4.16 X10e (3.90-5.60); WHITE BLOOD COUNT 5.1 X10e3 (4.0-10.5)
[2016-08-21 07:22] LABS: ALBUMIN SERUM 2.5 g/dL (3.5-5.0); ALKALINE PHOSPHATASE 73 U/L (32-92); ALT (SGPT) 16 U/L (10-40); AST (SGOT) 22 U/L (10-42); BILIRUBIN,TOTAL 0.8 mg/dL (0.2-2.0); BLOOD UREA NITROGEN <5 mg/dL (9-23); BUN/CREATININE RATIO 8.33; CALCIUM SERUM 8.1 mg/dL (8.4-10.2); CARBON DIOXIDE 24 mmol/L (22-31); CHLORIDE 105 mmol/L (100-111); CREATININE SERUM 0.6 mg/dL (0.6-1.4); GLOM FILT RATE Estimated 108.6 mL/min (>60); GLUCOSE FASTING 84 mg/dL (70-110); POTASSIUM 3.3 mmol/L (3.5-5.1); PROTEIN TOTAL SERUM 5.2 g/dL (6.0-8.3); SODIUM 137 mmol/L (135-145)
[2016-08-21] MEDS ORDERED: MUPIROCIN0.9 GM TOP (12:48)
[2016-08-21] MEDS ORDERED: SERTRALINE HCL25 MG PO (12:49)
[2016-08-21] MEDS ORDERED: MULTIVITAMINS1 EAC3 PO (12:50)
[2016-08-21] MEDS ORDERED: B-121000 MC1 PO (12:51)
[2016-08-21] MEDS ORDERED: GABAPENTIN600 MG PO (12:53)
== END 2016-08-21 14:07 | disposition home or self-care (01) | DRG 866 ==
LOC: CED 14:18 → C3A PCU 19:40 → CEDOF 19:40 → CED 19:53 → CEDOF 19:53 → C3A PCU 21:40 → CEDOF 21:40 → C3A PCU 22:33
PROVIDERS: Internal Medicine; Internal Medicine Gastroenterology; Student in an Organized Health Care Education/Training Program
PROC: 0DB78ZX Excision of Stomach, Pylorus, Via Natural or Artificial Opening Endoscopic, Diagnostic (ICD-10-PCS; principal; 2016-08-20 12:31)
PROC: 0DBK8ZX Excision of Ascending Colon, Via Natural or Artificial Opening Endoscopic, Diagnostic (ICD-10-PCS; 2016-08-20 12:31)
PROC: 0DBE8ZX Excision of Large Intestine, Via Natural or Artificial Opening Endoscopic, Diagnostic (ICD-10-PCS; 2016-08-20 12:31)
DX: B33.8 Other specified viral diseases (principal); K76.6 Portal hypertension; R11.2 Nausea with vomiting, unspecified; E86.0 Dehydration; R41.0 Disorientation, unspecified; E87.6 Hypokalemia; R41.3 Other amnesia; E83.51 Hypocalcemia; F10.10 Alcohol abuse, uncomplicated; E53.8 Deficiency of other specified B group vitamins; N63 Unspecified lump in breast; F32.9 Major depressive disorder, single episode, unspecified; F17.210 Nicotine dependence, cigarettes, uncomplicated; K29.70 Gastritis, unspecified, without bleeding; K31.89 Other diseases of stomach and duodenum; K57.30 Diverticulosis of large intestine without perforation or abscess without bleeding; R63.4 Abnormal weight loss; Z68.25 Body mass index [BMI] 25.0-25.9, adult; R19.7 Diarrhea, unspecified; Y90.0 Blood alcohol level of less than 20 mg/100 ml; Z90.49 Acquired absence of other specified parts of digestive tract; Z87.442 Personal history of urinary calculi; Z82.49 Family history of ischemic heart disease and other diseases of the circulatory system
CPT/HCPCS: 36415; 36600; 70450; 70553; 74176; 80048; 80053; 80076; 80307; 81003; 82140; 82533; 82553; 82607; 82803; 82947; 83735; 84132; 84439; 84443; 84484; 85025; 85027; 85610; 85730; 86592; 87077; 88305; 93005; 94640; 94760; 96361; 96374; 96375; 99285; A9577; C9113; G0480; J0696; J0833; J1650; J2060; J2250; J2405; J3411; J3475

== ENCOUNTER 2016-09-18 18:34 | Emergency (ER) | payer OTHER ==
--- NOTE | ~2016-09-18 | US85 ---
[facility]. [facility] A Service of [facility] RADIOLOGY TEXT RESULTS PATIENT: BETTYE RAMIREZ LOCATION: SED : 55 UNIT #: [id number] AGE: [address]: Ryland Valladares MD SEX: M ORDER DR: [id number] [id number] E MR#: [id number] Acc #: [id number] NAME: BETTYE RAMIREZ : 1955 SEX: M STUDY DATE/TIME: 09/18/2016 20:53 UNIT: SED ROOM: STUDY DESCRIPTION: LE Veins Unilat or Ltd Stdy Attending Physician: Ryland Valladares M.D. Ordering Physician: Ryland Valladares M.D. Primary Care Physician: Marquis Gutierrez M.D. MEDICAL IMAGING REPORT This report is preliminary unless electronic signature is present. EXAM Right lower extremity venous duplex ultrasound 09/18/2016 HISTORY 61-year-old male with right lower extremity pain status post spider bite 1 week ago. COMPARISON Right lower extremity venous duplex ultrasound 10/16/2014 FINDINGS Real time edwards-scale, color Doppler, and spectral Doppler analysis of the right lower extremity deep venous system demonstrates normal venous waveforms with normal compressibility and augmentation throughout. No evidence of right lower extremity deep venous thrombosis. IMPRESSION Negative for right lower extremity DVT Dictated by... Vinnie Mendoza M.D. THIS IS AN ELECTRONICALLY VERIFIED REPORT Vinnie Mendoza M.D. at 09/19/2016 10:04 AM BETSEY/teresa TD: 09/19/2016 04:36 JOB #: [id number] MEDICAL IMAGING REPORT Page 1 of 1
[~2016-09-18 18:34] MED LIST changes: +B-121000 MC1 PO; +GABAPENTIN600 MG PO; +LOVENOX80 MG/0.8 INJ; +MULTIVITAMINS1 EAC3 PO; +MUPIROCIN0.9 GM TOP; +OMEPRAZOLE20 M2 PO; +PATIENT'S PHARMACY; +ROBAXIN; +SERTRALINE HCL25 MG PO
[2016-09-18] MEDS ORDERED: METHOCARBAMOL PO (18:58)
[2016-09-18] MEDS ORDERED: VITAMIN B12-FO1 EACH PO (18:58)
[2016-09-18] MEDS ORDERED: NEURONTIN PO (18:59)
[2016-09-18] MEDS ORDERED: OMEPRAZOLE PO (18:59)
[2016-09-18] MEDS ORDERED: LOVENOX SUBQ (19:00)
== END 2016-09-18 22:07 | disposition home or self-care (01) ==
LOC: SED 18:34
DX: L03.115 Cellulitis of right lower limb (principal); Z87.442 Personal history of urinary calculi; Z90.49 Acquired absence of other specified parts of digestive tract; F17.200 Nicotine dependence, unspecified, uncomplicated; Z79.899 Other long term (current) drug therapy
CPT/HCPCS: 93971; 99283

== ENCOUNTER 2016-10-07 16:42 | Inpatient (IN) | payer OTHER ==
[~2016-10-07] VITALS: Ht 177.8 cm; Wt 79.0 kg
--- NOTE | ~2016-10-07 | DS ---
Unit #: [id number] #: [id number] Patient: BETTYE RAMIREZ [id number] [address] [place], [place] [address] [id number] I MR#: [id number] NAME: BETTYE RAMIREZ ROOM: 338 Age: 61 Sex: M Admission Date: 10/07/2016 : 1955 Discharge Date: 10/09/2016 Attending Physician: Raad Castellanos M.D. Primary Care Physician: Marquis Gutierrez M.D. DISCHARGE SUMMARY REASON FOR ADMISSION Recurrent DVT. HISTORY OF PRESENT ILLNESS/HOSPITAL COURSE Patient is a 61-year-old male with longstanding history of recurrent lower extremity DVTs. Apparently off and on, he has been on numerous medications in the past including Eliquis, Xarelto, Coumadin, as well as, recently was placed on Lovenox. All medications are with very questionable compliance. He subsequently developed left leg swelling, pain several days prior to admission. He was noted to have left lower extremity DVT (acute) and therefore was admitted for the same. In regard to his recurrent DVTs as well as questionable compliance with his routine medications, we have placed consultation to Dr. Escobar of hematology services and after extensive discussion with the patient and patient's family, it was learned that patient really has not been taking his chronic anticoagulation medications as prescribed. Therefore, he recommended Xarelto at time of discharge. Appropriate laboratory studies including D-dimer, lupus anticoagulant, factor V Leiden, prothrombin gene mutation, anticardiolipin, and antiphospholipid antibodies were drawn. Results are currently pending. Dr. Escobar also recommended IVC filter placement to which the patient underwent yesterday on October 08, 2016 by interventional radiology services. Postoperatively, he otherwise did well and there were no acute issues that happened. It should be noted that patient has a longstanding history of alcohol abuse. He likely suffers from amnesia and/or memory loss secondary to recurrent alcohol abuse as well as poor insight into his overall disease process. Therefore, noncompliance may be a combination of his consumption of alcohol as well as his misunderstanding of his medication regimen. This was reinforced with the patient's sister as well as other family members. Overall, the long-term prognosis of this patient is guarded at best secondary to his ongoing alcohol abuse. FINAL DISCHARGE DIAGNOSES 1. Left lower extremity deep venous thrombosis, acute. 2. Recurrent deep venous thromboses. 3. Alcohol abuse/alcohol dependence. 4. Chronic neuropathy/amnesia and/or memory issues, likely related to alcohol abuse and/or sequela of posttraumatic stress disorder. 5. Failure to thrive/malnutrition, likely secondary to chronic alcohol abuse. Unit #: [id number] #: [id number] Patient: BETTYE RAMIREZ FINAL DISCHARGE MEDICATIONS 1. Neurontin 600 mg p.o. q.8. 2. Methocarbamol 500 mg p.o. nightly p.r.n. 3. Folic acid 1 mg p.o. daily. 4. Thiamine 100 mg p.o. daily. 5. Multivitamin daily. 6. Omeprazole 20 mg p.o. daily. 7. Xarelto 15 mg p.o. b.i.d. x3 weeks, then 20 mg p.o. daily. DISCHARGE INSTRUCTIONS Patient instructed to follow up with Dr. Escobar as an outpatient. Call the office for an appointment within two weeks. DISCHARGE CONDITION Stable. DISCHARGE DISPOSITION Home. Dictated by... Raad Castellanos M.D. DORIE/daniela TD: 10/10/2016 11:38 JOB #: [id number] DISCHARGE SUMMARY Page 1 of 1 X Raad Castellanos MD X DISCHARGE SUMMARY
--- NOTE | ~2016-10-07 | US85 ---
[facility] A Service of [facility] RADIOLOGY TEXT RESULTS PATIENT: BETTYE RAMIREZ LOCATION: [facility] : 55 UNIT #: [id number] AGE: [address]: Cruz Ko DO SEX: M ORDER DR: [id number] [facility] [address] [place], [place] [address] [id number] P MR#: [id number] Acc #: [id number] NAME: BETTYE RAMIREZ : 1955 SEX: M STUDY DATE/TIME: 10/07/2016 17:26 UNIT: MONTY ROOM: STUDY DESCRIPTION: [employer] or Ltd Stdy Ordering Physician: Martina French P.A.-C. Primary Care Physician: Marquis Gutierrez M.D. MEDICAL IMAGING REPORT This report is preliminary unless electronic signature is present EXAM Lower extremity ultrasound for DVT on the left, 10/07/2016 INDICATIONS Left lower extremity pain 3 days. Ran out of blood thinners today. History of DVT in the popliteal fossa. TECHNIQUE Mckeon-scale color Doppler and spectral analysis of the left lower extremity was performed. No comparisons. FINDINGS Examination is abnormal. There is DVT in the left popliteal vein, posterior tibial vein and peroneal veins. The left lower extremity demonstrates no evidence of SVT. IMPRESSION 1. Abnormal examination. DVT is present in the popliteal vein, posterior tibial vein and peroneal veins of the left lower extremity. No evidence of SVT identified. STAT * RESULT Dictated by... Loki Church M.D. THIS IS AN ELECTRONICALLY VERIFIED REPORT Loki Church M.D. at 10/07/2016 9:06 PM NATALIA/teresa TD: 10/07/2016 17:50 [facility] A Service of [facility] RADIOLOGY TEXT RESULTS PATIENT: BETTYE RAMIREZ [id number] : 55 UNIT #: [id number] AGE: [address]: Cruz Ko DO SEX: M ORDER DR: RAVINDER #: [id number] MEDICAL IMAGING REPORT Page 1 of 1 COPY
--- NOTE | ~2016-10-07 | XA125 ---
[facility] A Service of [facility] RADIOLOGY TEXT RESULTS PATIENT: BETTYE RAMIREZ LOCATION: C3A 338-01 : 55 UNIT #: [id number] AGE: [address]: Raad Castellanos MD SEX: M ORDER DR: [id number] [facility]. [place], [place] [address] [id number] I MR#: [id number] Acc #: [id number] NAME: BETTYE RAMIREZ : 1955 SEX: M STUDY DATE/TIME: 10/08/2016 13:23 UNIT: C3A PCU ROOM: [facility] STUDY DESCRIPTION: XA IVC Filter Placement Attending Physician: Raad Castellanos M.D. Ordering Physician: Reginaldo Escobar M.D. Primary Care Physician: Marquis Gutierrez M.D. MEDICAL IMAGING REPORT This report is preliminary unless electronic signature is present EXAM Inferior vena caval filter placement. HISTORY Mr. Ramirez is a 61-year-old man with a history of left lower extremity DVT. He has a history of DVT in the popliteal fossa. He apparently has not been compliant with his blood thinners. He has been referred for inferior vena caval filter placement. PROCEDURE The procedure was explained to the patient including risks, benefits, potential complications, potential for alternative forms of treatment. Informed consent was obtained and prior to initiating the procedure, a formal time-out procedure was performed. Using all elements of maximal sterile barrier technique, including hand hygiene, caps, sterile gowns, gloves, and masks, the right groin was prepped with 2% chlorhexidine to obtain cutaneous sepsis and covered with a large sterile sheet. The ultrasound probe was covered with a sterile probe cover and sterile gel was applied. Real-time ultrasound guidance was used to localize the right common femoral vein and it was found to be patent and compressible. Hard copy ultrasound image was obtained. After local anesthesia with 1% Xylocaine, the vein well aerated punctured using real time ultrasound guidance and an 0.018 guidewire was advanced into the right iliac vein. A micropuncture sheath was placed and a J-wire was advanced into the inferior vena cava. A 5-Italian sheath was placed. Flush catheter was placed in to the caudal inferior vena cava and an inferior venacavagram was performed. The patient's inferior vena cava is of normal caliber with no evidence of thrombus. Renal vein influx appears to be at about the level of the superior endplate of L1. At this point, I exchanged for the filter sheath which was advanced into the IV contrast Option Elite filter was deployed at the level of the inferior endplate of [facility] A Service of [facility] RADIOLOGY TEXT RESULTS PATIENT: BETTYE RAMIREZ LOCATION: C3A 338-01 : 55 UNIT #: [id number] AGE: [address]: Raad Castellanos MD SEX: M ORDER DR: L1. The sheath was removed and manual pressure was applied until hemostasis was obtained. Total fluoroscopy time was 1.2 minutes and a total of 2 fluoroscopic images were obtained. The patient tolerated the procedure well and there were no immediate complications. IMPRESSION 1. Successful deployment of an Option Elite filter at the level of the patient's inferior endplate of L1. 2. Normal cavogram. 3. Ultrasound and fluoroscopy were used during the placement of this filter and permanent images were saved. Dictated by... Ermelinda Garner M.D. THIS IS AN ELECTRONICALLY VERIFIED REPORT Ermelinda Garner M.D. at 10/09/2016 5:18 PM CECILLE/elva TD: 10/09/2016 14:09 JOB #: [id number] MEDICAL IMAGING REPORT Page 1 of 1 COPY
--- NOTE | ~2016-10-07 | CO ---
Unit #: [id number] #: [id number] Patient: BETTYE RAMIREZ [id number] [facility] [address] [facility]. [place], [place] [address] [id number] I MR#: [id number] NAME: BETTYE RAMIREZ ROOM: 338 Age: 61 Sex: M Admission Date: 10/07/2016 : 1955 Attending Physician: Raad Castellanos M.D. Primary Care Physician: Marquis Gutierrez M.D. CONSULTATION REPORT REASON FOR EVAL Recurrent DVTs, please evaluate. HISTORY OF PRESENT ILLNESS This 61-year-old gentleman, who has a sister next to him, is unable to answer any of the questions. Defers them all to the sister. Essentially, she states that two years ago he had his first episode of left sided DVT, was started on Xarelto, followed by failures, started on Eliquis, Pradaxa and warfarin with all failures, and currently on Lovenox and that failed also, because he presented now with left sided DVT. On questioning him, he lives with his son. The son works all day. The patient does not remember at all doing things or taking his meds. He states that he only drinks six or more beers a day currently and he has cut down significantly. His history goes back to 30 to 40 years of alcoholism and heavy smoking. He is a and they started him on Lovenox and he is supposed to be taking two Lovenox shots a day but on immediate exam of his abdomen, there are only two or three bruises which are very old, according to my exam, and I did not see any fresh bruises at all. This gentleman was supposed to be on Lovenox now for months. I don't see evidence of that. PAST HISTORY 1. Otherwise, the sister states that he had the clot which traveled to the right shoulder and that is very unusual. 2. Also has a history of mass in his breast but it was diagnosed as benign by a mammogram in [facility]. We don't have that yet. 3. Otherwise, past history is mainly remarkable for the recurrent DVTs which started two years ago and, as stated above, they claim to have failed everything that is available and currently I don't see any evidence of him using the Lovenox. ALLERGIES No known allergies. CHRONIC MEDICATIONS 1. Neurontin. 2. Prilosec. 3. Thiamine. 4. Folic acid. 5. Robaxin. FAMILY HISTORY Negative for blood clots or pulmonary emboli or blood dyscrasias. Unit #: [id number] #: [id number] Patient: BETTYE RAMIREZ SOCIAL HISTORY As stated above. Decades of alcoholism and smoking. REVIEW OF SYSTEMS Difficult to obtain. He has forgotten what happened a few days ago and it is not very reliable. He just states that his legs hurt when he walks and that is all he is worried about. Otherwise, six or eight systems, although not very reliable, are within normal limits. PHYSICAL EXAMINATION GENERAL: Looks stated age. No palpable nodes. Could not appreciate any cords in his neck. May be some in his right forearm or left forearm which are old. LUNGS: Clear. BREASTS: Feels like a lipoma in the breasts. ABDOMEN: No organomegaly. CORSETS SALESPERSON: Difficult to evaluate thoroughly. I just went on his extremely poor memory. He moves upper and lower extremities well but that was the extent of the neuro exam. RECTAL: Not performed. EXTREMITIES: Left lower extremity - very slight edema. Homans is positive. Pulses are 2+. DIAGNOSTIC STUDIES LABORATORY: Chemistry - glucose 93, BUN 5, creatinine 0.5, sodium 137, potassium 3.4, chloride 102, CO2 28. Hemoglobin 13.9, hematocrit 41, white count 4800, platelet 92,000. 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 He is unreliable, according to the sister, in taking any medications at home. At this point, our main concern is how to make this gentleman not have pulmonary emboli. He already has the DVT so benefits/risks were explained to them. Will proceed with IVC filter followed by anticoagulation with Xarelto so that we do not need to monitor as he will not come for monitoring events. Even if he forgets to take the Xarelto, he still is unlikely to develop pulmonary emboli although he may develop swelling of his legs which will make him aware which will make him take his medications, we hope. In the meantime, I gave him my advice on stopping drinking and stopping smoking. He laughed and said he would think about it. Dictated by... Reginaldo Escobar M.D. JEANNETTE/amy TD: 10/08/2016 12:51 JOB #: [id number] Unit #: [id number] #: [id number] Patient: BETTYE RAMIREZ [place] CONSULTATION REPORT Page 1 of 1 X Reginaldo Escobar MD X CONSULTATION REPORT
--- NOTE | ~2016-10-07 | HP ---
Unit #: [id number] #: [id number] Patient: BETTYE RAMIREZ [id number] [place], [place] [address] [id number] I MR#: [id number] NAME: BETTYE RAMIREZ ROOM: 338 Age: 61 Sex: M Admission Date: 10/07/2016 : 1955 Attending Physician: Alyssa Willson M.D. Primary Care Physician: Marquis Gutierrez M.D. HISTORY AND PHYSICAL CHIEF COMPLAINT Recurrent DVTs. HISTORY This pleasant 61-year-old male with recurrent DVTs, alcohol abuse, is admitted for recurrent DVT. The patient is maintained on Lovenox for recurrent DVTs. He developed a right lower extremity DVT after stopping his Lovenox for a month. This occurred three weeks ago. He was told to take Lovenox 80 mg subcu b.i.d. Has missed some doses recently. Developed left leg swelling, pain a couple days ago. Presented to this emergency department where he has a left lower extremity DVT. He drinks alcohol on a daily basis, developed nausea and vomiting yesterday and currently is somewhat tremulous. PAST MEDICAL HISTORY 1. Chronic alcohol abuse. 2. 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 3. Cardia RFA. 4. Recurrent DVTs starting about two years ago. Patient failed all oral anticoagulation and has been maintained on Lovenox but is not always compliant. 5. Cholecystectomy. 6. EGD and colonoscopy performed 07/2016 revealing moderate gastritis, mild sigmoid diverticulosis and a colon polyp which was excised. ALLERGIES No known drug allergies. HOME MEDICATIONS 1. Prilosec 20 mg daily. 2. Neurontin 600 mg t.i.d. 3. Thiamine 100 mg daily. 4. Folic acid 1 mg daily. 5. Robaxin 500 mg q. h.s. p.r.n. 6. The patient is supposed to take Lovenox 80 mg subcu b.i.d. but has occasionally missed some doses. FAMILY HISTORY Cardiomyopathy and congestive heart failure. SOCIAL HISTORY The patient lives with his son. He drinks between 6 to 12 beers on a daily basis. Last beer was yesterday. Smokes about a pack per day of Unit #: [id number] #: [id number] Patient: BETTYE RAMIREZ tobacco. REVIEW OF SYSTEMS Difficult to obtain as patient, himself, is a poor historian. PHYSICAL EXAMINATION GENERAL APPEARANCE: Pleasant 61-year-old male, currently in no acute distress. VITAL SIGNS: Temperature 98.3, pulse 89, respirations 18, blood pressure 108/70. O2 saturation 98% on room air. HEENT: Eyes PERRLA. Extraocular muscles are intact. Pharynx is benign. NECK: Supple without adenopathy or thyromegaly. CHEST: Clear. CARDIAC: Normal S1 and S2 without S3, S4 or murmur. BREAST EXAM: The patient has a left breast mass which was noted last admission. ABDOMEN: Bowel sounds are present. No hepatosplenomegaly, tenderness or masses. EXTREMITIES: Notable for bilateral lower extremity edema. Left calf tenderness. NEUROLOGIC EXAM: The patient is awake, alert. He is oriented but seems to be somewhat forgetful. He has equal strength throughout, is mildly tremulous. DIAGNOSTIC STUDIES LABORATORY: Hematocrit is 45.4, normal white count. Platelet count is 110, normal MCV. Coags normal. SMA-12 - potassium 3.2, chloride is 97, calcium is 8.3, albumin is 2.7, alkaline phos. 171. IMAGING: Doppler of the left leg - DVT in the popliteal vein, posterior tibial vein and peroneal vein. ASSESSMENT 1. Recurrent DVTs for the past two years: Patient failed outpatient oral anticoagulation, recently missed some doses of Lovenox. Now presents with a left leg DVT. He is followed at the [facility] by Hematology. Family gives me a history also of possible polycythemia vera, that patient did require phlebotomy in the past. Will obtain records from the [facility]. 2. Alcohol abuse with recent nausea and vomiting, now with mild alcohol withdrawal. 3. Hypokalemia. 4. Left breast mass: Apparently, possibly worked up as an outpatient. 5. Memory issues and peripheral neuropathy, likely related to alcohol abuse. 6. Status post radiofrequency ablation for arrhythmia. PLANS 1. Replace potassium, check magnesium. 2. Vitamins and benzos. 3. Increase Lovenox to usual b.i.d. dosing. 4. Obtain records from the [facility] in terms of patient's previous diagnosis. 5. If not already done, patient needs outpatient workup for his left Unit #: [id number] #: [id number] Patient: BETTYE RAMIREZ breast mass. Dictated by Sharath Arora/amy TD: 10/08/2016 05:00 JOB #: [id number] HISTORY AND PHYSICAL Page 1 of 1 X Alyssa Willson MD X HISTORY AND PHYSICAL
[~2016-10-07 16:42] MED LIST changes: +LOVENOX SUBQ; +METHOCARBAMOL PO; +NEURONTIN PO; +OMEPRAZOLE PO; +VITAMIN B12-FO1 EACH PO
[2016-10-07 19:45] LABS: BASOPHIL% 0.8 % (0-2.5); EOSINOPHIL# 0.6 X10e3 (0-0.7); EOSINOPHIL% 10.3 % (0.0-7.0); HEMATOCRIT 45.4 % (38.0-50.0); HEMOGLOBIN 15.4 gm/dL (13.0-16.0); LYMPHOCYTE# 1.6 X10e3 (1.0-3.5); LYMPHOCYTE% 27.2 % (17.0-45.0); MEAN CELL VOLUME 95.5 FL (83-96); MEAN CORPUSCULAR HEMOGLOBIN 32.4 PG (28-34); MEAN PLATELET VOLUME 8.8 FL (6.5-11.5); MONOCYTE# 0.4 X10e3 (0-1.0); MONOCYTE% 6.7 % (3.0-12.0); NEUTROPHIL# 3.3 X10e3 (1.5-7.1); PLATELET COUNT 110 X10e3 (140-420); RED BLOOD COUNT 4.76 X10e (3.90-5.60)
[2016-10-07 19:51] LABS: DIFF IND NO
[2016-10-07 19:55] LABS: INR 1.1; PARTIAL THROMBOPLASTIN TIME 27.6 SECONDS (23.5-31.3); PROTHROMBIN TIME (PATIENT) 12.4 SECONDS (10.0-11.7)
[2016-10-07 20:04] LABS: ALBUMIN SERUM 2.7 g/dL (3.5-5.0); ALKALINE PHOSPHATASE 171 U/L (32-92); ALT (SGPT) 22 U/L (10-40); AST (SGOT) 42 U/L (10-42); BILIRUBIN,TOTAL 1.1 mg/dL (0.2-2.0); CALCIUM SERUM 8.3 mg/dL (8.4-10.2); CARBON DIOXIDE 28 mmol/L (22-31); CHLORIDE 97 mmol/L (100-111); CREATININE SERUM 0.7 mg/dL (0.6-1.4); GLOM FILT RATE Estimated 101.9 mL/min (>60); GLUCOSE FASTING 73 mg/dL (70-110); POTASSIUM 3.2 mmol/L (3.5-5.1); PROTEIN TOTAL SERUM 6.5 g/dL (6.0-8.3); SODIUM 135 mmol/L (135-145)
[2016-10-07 20:05] LABS: BLOOD UREA NITROGEN <5 mg/dL (9-23); BUN/CREATININE RATIO 7.14
[2016-10-08] MEDS ORDERED: FOLIC ACID1 MG PO (00:46)
[2016-10-08 06:42] LABS: HEMOGLOBIN 13.9 gm/dL (13.0-16.0); MEAN CELL VOLUME 96.2 FL (83-96); MEAN CORPUSCULAR HEMOGLOBIN 32.7 PG (28-34); RED BLOOD COUNT 4.27 X10e (3.90-5.60); RED CELL DISTRIBUTION WIDTH 18.3 % (11.0-15.5); WHITE BLOOD COUNT 4.8 X10e3 (4.0-10.5)
[2016-10-08 07:18] LABS: BLOOD UREA NITROGEN <5 mg/dL (9-23); CALCIUM SERUM 7.9 mg/dL (8.4-10.2); CARBON DIOXIDE 28 mmol/L (22-31); CHLORIDE 102 mmol/L (100-111); CREATININE SERUM 0.5 mg/dL (0.6-1.4); GLUCOSE FASTING 93 mg/dL (70-110); MAGNESIUM 1.8 mg/dL (1.6-3.0); POTASSIUM 3.5 mmol/L (3.5-5.1); SODIUM 137 mmol/L (135-145)
[2016-10-09 05:18] LABS: HEMATOCRIT 39.5 % (38.0-50.0); HEMOGLOBIN 13.4 gm/dL (13.0-16.0); MEAN CELL VOLUME 96.2 FL (83-96); MEAN CORPUSCULAR HEMOGLOBIN 32.6 PG (28-34); MEAN CORPUSCULAR HGB CONC 33.9 g/dL (30-36); MEAN PLATELET VOLUME 8.7 FL (6.5-11.5); RED BLOOD COUNT 4.11 X10e (3.90-5.60); RED CELL DISTRIBUTION WIDTH 18.3 % (11.0-15.5); WHITE BLOOD COUNT 4.7 X10e3 (4.0-10.5)
[2016-10-09 06:36] LABS: CALCIUM SERUM 7.7 mg/dL (8.4-10.2); CARBON DIOXIDE 27 mmol/L (22-31); CHLORIDE 102 mmol/L (100-111); CREATININE SERUM 0.7 mg/dL (0.6-1.4); GLOM FILT RATE Estimated 101.9 mL/min (>60); GLUCOSE FASTING 85 mg/dL (70-110); SODIUM 136 mmol/L (135-145)
[2016-10-09 07:34] LABS: BLOOD UREA NITROGEN <5 mg/dL (9-23); BUN/CREATININE RATIO 7.14
[2016-10-09 07:35] LABS: POTASSIUM 2.9 mmol/L (3.5-5.1)
[2016-10-09] MEDS ORDERED: XARELTO15 MG PO (13:20)
[2016-10-09] MEDS ORDERED: XARELTO20 MG PO (13:21)
[2016-10-11 22:49] LABS: CARDIOLIPIN IGG (LUPUS) <14 GPL (<=14); CARDIOLIPIN IGM (LUPUS) 35 MPL (<=12); DRVVT MIX INTERP (LUPUS) Not Indicated (()); HEXAGONAL PHASE CONF (LUPUS) Negative (Negative); IMM PTT LA MIX CORRECTED (()); INCUB PTT LA MIX CORRECTED (()); INR LUPUS 1.1 (()); PROTROMBIN TIME LUPUS 11.7 sec (9.0-11.5); PT (LA MIX STUDY) 11.7 sec (<=11.5); PTT MIX INTERP Has been added (()); PTT-LA 41 sec (<=40); PTT-LA SCREEN (LUPUS) 41 sec (<=40); THROMBIN TIME LUPUS 18 sec (13-19); dRVVT SCREEN (LUPUS) 37 sec (<=45)
== END 2016-10-09 15:02 | disposition home or self-care (01) | DRG 253 ==
LOC: CED 16:42 → CEDOF 23:17 → CED 23:17 → C3A PCU 23:30 → CEDOF 23:30 → C3A PCU 10-08 00:20
PROVIDERS: Emergency Medicine; Family Medicine; Internal Medicine; Internal Medicine Medical Oncology
PROC: 06H03DZ Insertion of Intraluminal Device into Inferior Vena Cava, Percutaneous Approach (ICD-10-PCS; principal; 2016-10-08)
DX: I82.402 Acute embolism and thrombosis of unspecified deep veins of left lower extremity (principal); F10.230 Alcohol dependence with withdrawal, uncomplicated; F10.27 Alcohol dependence with alcohol-induced persisting dementia; E46 Unspecified protein-calorie malnutrition; G62.1 Alcoholic polyneuropathy; R41.3 Other amnesia; F43.10 Post-traumatic stress disorder, unspecified; R62.7 Adult failure to thrive; Z68.25 Body mass index [BMI] 25.0-25.9, adult; Z79.01 Long term (current) use of anticoagulants; Z91.14 Patient's other noncompliance with medication regimen; F17.200 Nicotine dependence, unspecified, uncomplicated; E87.6 Hypokalemia; Z71.41 Alcohol abuse counseling and surveillance of alcoholic; Z71.6 Tobacco abuse counseling; Z87.820 Personal history of traumatic brain injury; Z90.49 Acquired absence of other specified parts of digestive tract; Z82.49 Family history of ischemic heart disease and other diseases of the circulatory system
CPT/HCPCS: 36415; 80048; 80053; 81240; 81241; 83735; 85025; 85027; 85379; 85598; 85610; 85613; 85670; 85730; 86146; 86147; 86148; 93971; 99285; C1725; C1880; J1650; Q9967

== ENCOUNTER 2016-10-20 21:07 | Inpatient (IN) | payer OTHER ==
[~2016-10-20] VITALS: Ht 180.3 cm; Wt 80.3 kg
--- NOTE | ~2016-10-20 | DS ---
Unit #: [id number] #: [id number] Patient: BETTYE RAMIREZ [id number] [facility]. [place], [place] [address] [id number] I MR#: [id number] NAME: BETTYE RAMIREZ ROOM: 548 Age: 61 Sex: M Admission Date: 10/21/2016 : 1955 Discharge Date: 10/23/2016 Attending Physician: Raad Castellanos M.D. Primary Care Physician: Marquis Gutierrez M.D. DISCHARGE SUMMARY REASON FOR ADMISSION Dyspnea/chest pain. HISTORY OF PRESENT ILLNESS/HOSPITAL COURSE The patient is a very pleasant 61-year-old male, with a history of alcohol abuse, mrja-tz-isapqjzj cognitive impairment, likely underlying dementia, questionable posttraumatic stress disorder, as well as a recent hospitalization secondary to lower extremity DVT, who presented secondary to mild discomfort with breathing. He was seen and evaluated in the emergency room secondary to his history of recurrent DVT, as well as PE history. He underwent a CT angiogram which did reveal pulmonary artery thromboembolism which was noted. There was no evidence of any right heart strain pattern. There was a well-defined subcutaneous mass in the left anterior chest wall at that point in time. In regards to his anticoagulation, consultation was placed with Dr. Escobar, as he had seen the patient recently before. It was later learned that at the time of discharge from the patient's prior hospital admission, the Xarelto initially was not covered, therefore it took them approximately two weeks as an outpatient to get this medication covered and recently he had received a prescription on the day that he was admitted on October 19, 2016. He, himself, is a fairly poor historian. He resides at home alone. He states that while he does not have his Xarelto covered that he began taking his Lovenox shots that he had previously prescribed, how often the frequency and dosage it is not known. He was admitted, subsequently, for pulmonary embolism; however, it was felt as though he likely had it for some time and secondary to lack of anticoagulation, seems appropriate that it was not new pulmonary embolism and likely had been there previously. We also placed consultation with [facility], Dr. Dickerson [facility] evaluated for aforementioned left breast mass. He did undergo an ultrasound breast bilateral which did recommend surgical evaluation, aspiration, and/or possible excision to be conducted as an outpatient. Dr. Dickerson recommended at this point in time since he has been started on anticoagulation that appropriate outpatient followup in approximately oha-sg-zdcch weeks with repeat ultrasound and/or possible aspiration as an outpatient would be recommended. At this point in time, I have reviewed his overall level of care with his sister. The patient resides at home with his son; however, his son is not Unit #: [id number] #: [id number] Patient: BETTYE RAMIREZ present for the majority of the day. His overall level of care is much higher. He likely is noncompliant with the medications secondary to his cognitive impairment. At this point in time, his sisters will take turns taking care of him on a weekly basis. He will be discharged home. FINAL DISCHARGE DIAGNOSES 1. Pulmonary embolism. 2. Dyspnea on admission, now resolved. 3. Recent hospital admission secondary to lower extremity DVT. 4. Prior history of recurrent DVT/PE now on lifelong anticoagulation. 5. Alcohol abuse. 6. Cognitive impairment, mini-mental status exam, approximately 1530. 7. Likely khmd-ng-rpmbnpgz dementia. 8. Left breast mass. DISCHARGE MEDICATIONS 1. Xarelto 50 mg p.o. b.i.d. x3 weeks then 20 mg p.o. daily 2. Neurontin 600 mg p.o. q.8 3. Multivitamin daily 4. Methocarbamol 500 mg p.o. q.h.s. p.r.n. 5. Omeprazole 20 mg p.o. daily DISCHARGE CONDITION Stable. DISCHARGE DISPOSITION Home. Home health to follow at the time of discharge. Dictated by... Sharath Saha/lydia TD: 10/24/2016 08:58 JOB #: [id number] DISCHARGE SUMMARY Page 1 of 1 X Raad Castellanos MD X DISCHARGE SUMMARY
--- NOTE | ~2016-10-20 | CO ---
Unit #: [id number] #: [id number] Patient: BETTYE RAMIREZ [id number] [facility]. [place], [place] [address] [id number] I MR#: [id number] NAME: BETTYE RAMIREZ ROOM: 548 Age: 61 Sex: M Admission Date: 10/21/2016 : 1955 Attending Physician: Raad Castellanos M.D. Primary Care Physician: Marquis Gutierrez M.D. Consultation Date: 10/21/2016 CONSULTATION REPORT REASON FOR CONSULTATION Left breast mass. Thank you very much for asking us to see Mr. Humphries. HISTORY OF PRESENT ILLNESS He is a 61-year-old white male, who 2 to 3 weeks ago was hospitalized at [facility] with a swollen left leg and found to have DVT. He had an IVC filter placed and was started on anticoagulation. He presents back to the emergency room with the complaint of weakness and nausea and vomiting. He was found to have a normal PT and on CT scan of the chest was found to have evidence of pulmonary embolism. Incidentally, he was found to have a left breast mass, which had enlarged from previous imaging evaluation. He has had no nipple discharge or nipple retraction. He does have a positive family history and that his sister had breast cancer. He denies any history of trauma. He does drink alcohol regularly. He has never had a breast biopsy before. He presents at this time for further evaluation. He denies any GI bleeding. He has no abdominal pain or nausea at this time. ALLERGIES No known medical allergies. MEDICATIONS At home, methocarbamol, Neurontin, omeprazole, folic acid, and Lovenox. PAST SURGICAL HISTORY Kidney stones, heart ablation, appendectomy, tonsillectomy, and cholecystectomy per his history. PAST MEDICAL HISTORY Hypertension, DVT, cardiac disease. SOCIAL HISTORY Positive for tobacco use on a daily basis. The patient states he gets shakes if he does not drink, he drinks beer on a regular basis. REVIEW OF SYSTEMS Negative except for above. IMMUNIZATION STATUS Unknown. Unit #: [id number] #: [id number] Patient: BETTYE RAMIREZ FAMILY HISTORY Sister with breast cancer. PHYSICAL EXAMINATION GENERAL: Well-developed, well-nourished white male, in no apparent distress. VITAL SIGNS: Afebrile. Vital signs stable. NECK: Supple. No thyromegaly or adenopathy. BACK: No CVA or spinous tenderness. HEENT: Sclerae nonicteric. Extraocular movements are intact. ABDOMEN: Flat, soft, nontender. BREAST: Examination of the right breast reveals no palpable abnormality. No axillary adenopathy. On the left side, the patient has a 5 cm well-circumscribed soft, mobile mass that is involving the inferior aspect of his left breast. He has no left axillary adenopathy. There is no nipple discharge or nipple retraction. DIAGNOSTIC STUDIES LABORATORY RESULTS: Reveal the patient to have a white count of 5.5, hemoglobin of 17.2. LFTs were normal. PT was 12.7. Sodium was 132, potassium 2.9. IMPRESSION A 61-year-old white male with deep vein thrombosis, pulmonary embolism, and a left breast mass. We feel he needs an ultrasound to determine if it cystic versus solid and we would do a bilateral breast ultrasound. He would need an excision biopsy at some point, where his anticoagulation can be controlled perioperatively. All this has been fully explained to the patient in detail as well as the sister. He understands and requests to proceed with the current treatment plan. Dictated by... Sharath Ponce/carlos TD: 10/21/2016 08:05 JOB #: [id number] CC: [facility] CONSULTATION REPORT Page 1 of 1 X Yeyo Dickerson MD X CONSULTATION REPORT
--- NOTE | ~2016-10-20 | CT16 ---
[facility] A Service of [facility] & [facility] RADIOLOGY TEXT RESULTS PATIENT: BETTYE RAMIREZ LOCATION: C5B 548-01 : 55 UNIT #: [id number] AGE: [address]: Raad Castellanos MD SEX: M ORDER DR: [id number] [facility] [address] [place], [place] [address] [id number] MR#: [id number] Acc #: [id number] NAME: BETTYE RAMIREZ : 1955 SEX: M STUDY DATE/TIME: 10/21/2016 1:57 UNIT: [facility] ROOM: [facility] STUDY DESCRIPTION: CT Angio Chest for PE Attending Physician: Raad Castellanos M.D. Ordering Physician: Francisco Anton M.D. Primary Care Physician: Marquis Gutierrez M.D. MEDICAL IMAGING REPORT This report is preliminary unless electronic signature is present EXAM CT chest with contrast, pulmonary arteriography protocol, 10/21/2016 HISTORY 61-year-old male in the ED complaining of 4-day history of shortness of air. He notes some weakness, nausea, and vomiting. He has a past history of DVT and PE, and an IVC vascular filter is in place. TECHNIQUE CT examination of the chest with IV contrast using pulmonary arteriography protocol. CTA MIP images of the pulmonary arteries were reformatted in multiple planes. This CT exam was performed with one or more of the following radiation dose reduction techniques: automatic exposure control, adjustment of mA and/or kV according to patient size, and iterative reconstruction. FINDINGS The examination is positive for pulmonary artery thromboembolism. Branching thrombus is present in the central right lower lobe pulmonary arteries, and there are smaller quantities of pulmonary artery thrombus in the central anterior segment right upper lobe and anterior segment left upper lobe. No large thrombus is seen within the main pulmonary arteries. There is no CT evidence of right heart strain pattern. The heart size is normal. Mild aneurysmal dilatation of the ascending thoracic aorta measuring up to 4.2 cm. No aortic dissection or pericardial effusion. The lungs are expanded and clear. No visible pleural effusion. There is a well-defined subcutaneous mass in the left anterior chest wall below the nipple that is increased in size from about to 4.4 cm on 11/03/2013 to about 5.2 cm today. Referral for surgical excision is [facility] A Service of [facility] & [facility] RADIOLOGY TEXT RESULTS PATIENT: BETTYE RAMIREZ LOCATION: [place] [address] : [birth year] UNIT #: [id number] AGE: [address]: Raad Castellanos MD SEX: M ORDER DR: recommended. Limited upper abdominal images show a vascular filter in the IVC. Cholecystectomy. Diffuse hepatic steatosis. IMPRESSION 1. The examination is positive for pulmonary artery thromboembolism. Most of this is present within the central right lower lobe, but there are smaller quantities of pulmonary artery thrombus in the anterior segment right upper lobe and anterior segment left upper lobe. 2. No evidence of right heart strain pattern. Heart size is normal, and there is no pericardial effusion. 3. Aneurysmal dilatation of the ascending thoracic aorta measuring up to 4.2 cm. 4. Lungs clear. No pleural effusion. 5. Well-defined subcutaneous mass in the left anterior chest wall just below the nipple has enlarged since 11/03/2013, as noted above. It currently measures up to 5.2 cm. Referral for surgical resection is recommended. 6. Vascular filter in the IVC. Dictated by... Mohit Wang M.D. THIS IS AN ELECTRONICALLY VERIFIED REPORT Mohit Wang M.D. at 10/21/2016 4:47 PM Mat TD: 10/21/2016 11:38 JOB #: [id number] MEDICAL IMAGING REPORT Page 1 of 1 COPY
--- NOTE | ~2016-10-20 | US17 ---
[facility] A Service of [facility] & [facility] RADIOLOGY TEXT RESULTS PATIENT: BETTYE RAMIREZ LOCATION: C5B 548-01 : 55 UNIT #: [id number] AGE: [address]: Raad Castellanos MD SEX: M ORDER DR: [id number] [facility] [address] [place], [place] [address] [id number] I MR#: [id number] Acc #: [id number] NAME: BETTYE RAMIREZ : 1955 SEX: M STUDY DATE/TIME: 10/21/2016 10:32 UNIT: [facility] ROOM: [facility] STUDY DESCRIPTION: US Breast Bilateral Attending Physician: Raad Castellanos M.D. Ordering Physician: Raad Castellanos M.D. Primary Care Physician: Marquis Gutierrez M.D. MEDICAL IMAGING REPORT This report is preliminary unless electronic signature is present EXAM Left breast ultrasound INDICTIONS Well circumscribed mass or cyst seen on CT scan of the chest dated 10/21/16 behind the left nipple. The study also showed a amount of gynecomastia on each side. FINDINGS Ultrasound of the left breast does show an area of glandular tissue in the retroareolar tissue measuring 14 mm in diameter. Inferior to this is a well circumscribed solid appearing lesion measuring 4.2 x 2.2 x 5.0 cm. There is no internal flow visible. It is fairly uniform. IMPRESSION There is a 5 cm well circumscribed solid appearing lesion slightly inferior to the small glandular tissue that is located behind the left nipple. The patient states it has been present for a number of years. It is likely a sebaceous cyst. The internal contents appear solid and do not have any internal blood flow. It is very uniform and well circumscribed. It is very obvious clinically as based on the CT appearance and I do not believe that imaging guidance is needed for aspiration. The lesion is very likely benign either followup or aspiration is recommended. BIRADS: 0 - incomplete. Needs additional imaging evaluation. Dictated by... Yossi Amaro M.D. THIS IS AN ELECTRONICALLY VERIFIED REPORT [facility] A Service of [facility] & [facility] / [facility] RADIOLOGY TEXT RESULTS PATIENT: BETTYE RAMIREZ LOCATION: [facility] 548-01 : [birth year] UNIT #: [id number] AGE: [address]: Raad Castellanos MD SEX: M ORDER DR: Yossi Amaro M.D. at 10/21/2016 3:17 PM RICARDO/tana TD: 10/21/2016 14:13 JOB #: [id number] MEDICAL IMAGING REPORT Page 1 of 1 COPY
--- NOTE | ~2016-10-20 | EKG ---
PATIENT: BETTYE RAMIREZ UNIT #: [id number] Ventricular Rate: 85 BPM Atrial Rate: 85 BPM P-R Interval: 150 ms QRS Duration: 78 ms Q-T Interval: 360 ms QTC Calculation(Bezet): 428 ms P [place]: 62 degrees Calculated R [place]: 41 degrees Calculated T [place]: 54 degrees Diagnosis Line: Normal sinus rhythm Diagnosis Line: Possible Left atrial enlargement Diagnosis Line: Low voltage QRS Diagnosis Line: Abnormal ECG Diagnosis Line: When compared with ECG of 18-AUG-2016 15:34, Diagnosis Line: No significant change was found Diagnosis Line: Confirmed by KLEBER LAZO MD ([id number]) on Diagnosis Line: 10/21/2016 12:15:30 PM INTERPRETING MD: ZEHRA
--- NOTE | ~2016-10-20 | HP ---
Unit #: [id number] #: [id number] Patient: BETTYE RAMIREZ [id number] [address] [place], [place] [address] [id number] I MR#: [id number] NAME: BETTYE RAMIREZ ROOM: 548 Age: 61 Sex: M Admission Date: 10/21/2016 : 1955 Attending Physician: Raad Castellanos M.D. Primary Care Physician: Marquis Gutierrez M.D. HISTORY AND PHYSICAL CHIEF COMPLAINT Weakness, nausea, vomiting, pulmonary emboli. HISTORY This pleasant 61-year-old male with recurrent DVTs, alcohol abuse with memory loss, is admitted for pulmonary emboli. The patient developed some nausea, vomiting, felt weak yesterday. Although he was prescribed Xarelto two weeks ago, the prescription did not arrive until yesterday. The patient has been taking Lovenox injections twice a day, if he remembers, for his DVTs. Hasn't taken the Lovenox for at least a couple of days. He is poorly compliant with his Lovenox. In any event, his family brought him to the emergency department late last evening where a CTA was performed showing right lower lobe, right upper lobe and left upper lobe PEs. The patient was last admitted to this facility 10/07 through 10/09/2016 for recurrent lower extremity DVTs despite anticoagulation. As above, the patient is not all that compliant with his anticoagulation. He was seen by Dr. Reginaldo Escobar. An IVC filter was placed. He was to take Xarelto. The Xarelto, however, did not arrive until yesterday through the [facility]. PAST MEDICAL HISTORY 1. Chronic alcohol abuse. 2. 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 3. Radiofrequency ablation for arrhythmia. 4. Recurrent DVTs starting two years ago. Family tells me the patient failed oral anticoagulation, was maintained on Lovenox but is somewhat poorly compliant with Lovenox. 5. Cholecystectomy. 6. EGD and colonoscopy 07/2016 revealing moderate gastritis, mild sigmoid diverticulosis, colon polyp which was excised. ALLERGIES No known drug allergies. HOME MEDICATIONS 1. Prilosec 20 mg daily. 2. Neurontin 600 mg t.i.d. 3. Thiamine 100 mg daily. 4. Folic acid 1 mg daily. 5. Robaxin 500 mg q. h.s. 6. Patient was supposed to take Xarelto which he hasn't yet started. 7. Has been taking Lovenox but is poorly compliant. Unit #: [id number] #: [id number] Patient: BETTYE RAMIREZ FAMILY HISTORY Cardiomyopathy and congestive heart failure. SOCIAL HISTORY The patient lives with his son. He drinks between 6-12 beers on a daily basis, does shake if he does not drink alcohol. Smokes about a pack per day of tobacco. REVIEW OF SYSTEMS Difficult to obtain as patient himself is a poor historian. PHYSICAL EXAMINATION GENERAL: Pleasant 61-year-old male, currently in no acute distress. VITAL SIGNS: Temperature 98, pulse 93, respirations 16, blood pressure 109/74. O2 saturation is 99% on room air. HEENT: Eyes PERRLA. Extraocular muscles are intact. Pharynx is benign. NECK: Supple without adenopathy or thyromegaly. CHEST: Clear. CARDIAC: Normal S1 and S2 without S3, S4 or murmur. ABDOMEN: Bowel sounds are present. No hepatosplenomegaly, tenderness or masses. BREASTS: Breast examination reveals left breast mass. EXTREMITIES: Notable for bilateral edema. NEUROLOGIC EXAM: The patient is awake, alert. He is mildly confused. His cranial nerves are intact. He has equal strength throughout. DIAGNOSTIC STUDIES LABORATORY: Admission labs - hematocrit is 49.7, normal white count, platelet count and MCV. Coags are pending. SMA-12 - sodium 132, potassium 2.9, chloride is 96, calcium is 8, albumin is 2.6, alkaline phos. 159. Normal lipase. Alcohol 28. Urine tox is positive for benzos. Urinalysis is unremarkable. IMAGING: CTA of the chest shows PEs, mostly right lower lobe but some in the right upper lobe/left upper lobe with increasing subcutaneous mass left breast, aneurysmal dilatation of the thoracic aorta. CARDIOVASCULAR: EKG - sinus rhythm, rate 85. Cardiac markers are negative. ASSESSMENT 1. Weakness and nausea and vomiting which brought the patient into the hospital. 2. DVTs and PEs. The PEs are noted on the CTA chest. Patient just had an IVC filter placed about two weeks ago. I suspect that the PEs may have occurred before the IVC filter was placed. He was discharged two weeks ago to start Xarelto but this medication did not arrive through the [facility] until yesterday. He has been poorly compliant with his Lovenox. 3. Alcohol abuse with neuropathy and memory issues. 4. Enlarging left breast mass. Unit #: [id number] #: [id number] Patient: BETTYE RAMIREZ 5. Gastritis. 6. Hypokalemia and hyponatremia. PLANS 1. Heparin drip for now. I will consult Dr. Escobar again, but likely patient can start Xarelto tomorrow morning. 2. Benzos and vitamins. 3. Replace potassium, check magnesium. 4. IV fluids. 5. Zofran. 6. Check ultrasound of the left breast and will ask [facility] to see. Dictated by Alyssa Willson M.D. FREDDY/amy TD: 10/21/2016 06:25 JOB #: [id number] CC: Marquis Gutierrez M.D. HISTORY AND PHYSICAL Page 1 of 1 X Alyssa Willson MD HISTORY AND PHYSICAL
--- NOTE | ~2016-10-20 | CO ---
Unit #: [id number] #: [id number] Patient: BETTYE RAMIREZ [id number] [place] [id number] [facility]. [place], [place] [address] [id number] I MR#: [id number] NAME: BETTYE RAMIREZ ROOM: 548 Age: 61 Sex: M Admission Date: 10/21/2016 : 1955 Attending Physician: Raad Castellanos M.D. Primary Care Physician: Marquis Gutierrez M.D. Consultation Date: 10/21/2016 CONSULTATION REPORT REASON FOR EVALUATION Pulmonary emboli, please evaluate. HISTORY OF PRESENT ILLNESS This 61-year-old gentleman whom I saw on 10/07/16, at that time had DVT and an IVC filter was placed because he failed, according to the chart, everything from Xarelto and Eliquis, Pradaxa and even Lovenox so at that point we realized that he is totally unreliable and was not taking his meds so IVC filter was placed and he was placed on Xarelto and, according to the family, he went home and went and tried to fill the prescription, could not afford it, went to the [facility] and they took their sweet time in prescribing this medication which just arrived in the patient's home yesterday so he was without any anticoagulation and now has asymptomatic, possible bilateral, small bulk PEs. During his hospitalization last time we did a D-dimer and it was in the 1500 range making it possible that he had pulmonary emboli then. As currently he has an IVC filter and I seriously doubt that he has developed a clot on top of the IVC filter; if that had happened, both his legs would be swollen which they are not. PAST MEDICAL HISTORY His past history is remarkable for repeated DVTs, otherwise he has what appears to be a benign left breast mass, feels like a lipoma, otherwise is unremarkable. ALLERGIES No known allergies. CHRONIC MEDICATIONS Robaxin, Neurontin, Prilosec, thiamin and folic acid. FAMILY HISTORY Family history is negative for clots or pulmonary emboli or blood dyscrasias. SOCIAL HISTORY Decades of alcoholism and heavy smoking. REVIEW OF SYSTEMS He states that at home he felt weak. He had mild nausea. No chest pain. No hemoptysis, hematemesis, melena, hematuria and he states that the leg on the left side feels better otherwise six or eight systems were within normal limits. Unit #: [id number] #: [id number] Patient: BETTYE RAMIREZ PHYSICAL EXAMINATION GENERAL APPEARANCE: On exam he is wide awake, alert. His family is in the room with him. HEENT: No pallor. No bleeding. No petechiae. No ecchymosis. No palpable nodes. LUNGS: Clear. CARDIOVASCULAR: Distant S1 and S2. ABDOMEN: No palpable liver or spleen. EDGER TECHNICIAN: Grossly intact. ANO-RECTAL: The rectal was not performed. DIAGNOSTIC STUDIES IMAGING: CT scan of the chest shows small pulmonary emboli, age undetermined. LABORATORY: Glucose 121, BUN 5, creatinine 0.7, sodium 134, potassium 3.3, chloride 100, CO2 23. His D-dimer on October 08 was 1395. CBC: Hemoglobin 14.5, hematocrit 43.8, white count 4600 and platelets 137,000. IMPRESSION This 61-year-old gentleman who is totally unreliable on taking medications had recurrent deep venous thromboses and it was documented that he failed Xarelto, Eliquis, Pradaxa, Lovenox while he was just not taking it so last time he was here, about a couple of weeks ago, we put an IVC filter and stared him on Xarelto. He went home with a prescription and when he went to fill it he could not afford it, went to the [facility] and they had to get special approval so it takes two weeks for [facility] to ship him the medication, Xarelto, to reach his home yesterday. So at this point I discussed with the patient and his family that we are going to start him on Xarelto 15 mg here b.i.d. and take the heparin off after the first dose by a few hours and told him to bring his meds from home so that he can continue his Xarelto 15 mg p.o. b.i.d. for 21 days then 20 mg with supper. Dictated by.Yudith. Reginaldo Escobar M.D. JEANNETTE/addi TD: 10/21/2016 19:15 JOB #: [id number] CONSULTATION REPORT Page 1 of 1 X Reginaldo Escobar MD CONSULTATION REPORT
[~2016-10-20 21:07] MED LIST changes: +FOLIC ACID1 MG PO
[2016-10-21 00:37] LABS: POC - CKMB 3.1 ng/mL (0.0-7.9); POC - TROPONIN <0.05 ng/mL (<=0.05)
[2016-10-21 00:38] LABS: BASOPHIL# 0.1 X10e3 (0-0.3); BASOPHIL% 1.1 % (0-2.5); DIFF IND NO; EOSINOPHIL# 0.3 X10e3 (0-0.7); EOSINOPHIL% 5.7 % (0.0-7.0); HEMATOCRIT 49.7 % (38.0-50.0); HEMOGLOBIN 17.2 gm/dL (13.0-16.0); LYMPHOCYTE# 1.6 X10e3 (1.0-3.5); LYMPHOCYTE% 28.7 % (17.0-45.0); MEAN CELL VOLUME 94.7 FL (83-96); MEAN CORPUSCULAR HEMOGLOBIN 32.7 PG (28-34); MEAN CORPUSCULAR HGB CONC 34.5 g/dL (30-36); MEAN PLATELET VOLUME 8.3 FL (6.5-11.5); MONOCYTE# 0.4 X10e3 (0-1.0); NEUTROPHIL# 3.2 X10e3 (1.5-7.1); NEUTROPHIL% 57.5 % (40-75); PLATELET COUNT 157 X10e3 (140-420); RED BLOOD COUNT 5.25 X10e (3.90-5.60); RED CELL DISTRIBUTION WIDTH 18.1 % (11.0-15.5); WHITE BLOOD COUNT 5.5 X10e3 (4.0-10.5)
[2016-10-21 00:58] LABS: CPK (CREATINE PHOSPHOKINASE) 43 IU/L (36-174); LIPASE 19 U/L (22-51)
[2016-10-21 01:13] LABS: ALBUMIN SERUM 2.6 g/dL (3.5-5.0); ALKALINE PHOSPHATASE 159 U/L (32-92); ALT (SGPT) 17 U/L (10-40); AST (SGOT) 31 U/L (10-42); BILIRUBIN, DIRECT 0.2 mg/dL (0.0-0.2); BILIRUBIN,INDIRECT 0.4 mg/dL (0.0-0.9); BILIRUBIN,TOTAL 0.6 mg/dL (0.2-2.0); BLOOD UREA NITROGEN <5 mg/dL (9-23); BUN/CREATININE RATIO 8.33; CARBON DIOXIDE 24 mmol/L (22-31); CHLORIDE 96 mmol/L (100-111); CREATININE SERUM 0.6 mg/dL (0.6-1.4); GLOM FILT RATE Estimated 108.6 mL/min (>60); GLUCOSE FASTING 81 mg/dL (70-110); POTASSIUM 2.9 mmol/L (3.5-5.1); PROTEIN TOTAL SERUM 6.1 g/dL (6.0-8.3); SODIUM 132 mmol/L (135-145)
[2016-10-21 01:29] LABS: URINE SOURCE CLEAN CATCH
[2016-10-21 01:35] LABS: URINE APPEARANCE CLEAR; URINE BILIRUBIN NEG (NEG); URINE BLOOD NEG (NEG); URINE COLOR YELLOW; URINE GLUCOSE NEG (NEG); URINE KETONE NEG (NEG); URINE LEUKOCYTE ESTERASE NEG (NEG); URINE NITRATE NEG (NEG); URINE PH 5.5 (5-8); URINE PROTEIN NEG (NEG); URINE SPECIFIC GRAVITY 1.009 (1.003-1.035); URINE UROBILINOGEN 0.2 MG/DL (NEG)
[2016-10-21 01:39] LABS: CULTURE INDICATED? NO
[2016-10-21 01:55] LABS: AMPHETAMINE NEG (NEG); BARBITURATES NEG (NEG); BENZODIAZEPINES POS (NEG); COCAINE NEG (NEG); MARIJUANA NEG (NEG); OPIATES NEG (NEG); TRICYCLIC ANTIDEPRESSANTS NEG (NEG); U METHADONE NEG (NEG)
[2016-10-21] MEDS ORDERED: LOVENOX80 MG/0.8 INJ (03:10)
[2016-10-21 03:18] LABS: POC - CKMB 1.7 ng/mL (0.0-7.9); POC - TROPONIN <0.05 ng/mL (<=0.05)
[2016-10-21 06:04] LABS: INR 1.2; PARTIAL THROMBOPLASTIN TIME 28.8 SECONDS (23.5-31.3); PROTHROMBIN TIME (PATIENT) 12.7 SECONDS (10.0-11.7)
[2016-10-21 09:29] LABS: BASOPHIL# 0.1 X10e3 (0-0.3); BASOPHIL% 1.3 % (0-2.5); EOSINOPHIL# 0.5 X10e3 (0-0.7); EOSINOPHIL% 9.9 % (0.0-7.0); HEMATOCRIT 43.8 % (38.0-50.0); LYMPHOCYTE# 1.1 X10e3 (1.0-3.5); LYMPHOCYTE% 23.6 % (17.0-45.0); MEAN CELL VOLUME 96.1 FL (83-96); MEAN CORPUSCULAR HEMOGLOBIN 31.7 PG (28-34); MEAN PLATELET VOLUME 8.4 FL (6.5-11.5); MONOCYTE# 0.4 X10e3 (0-1.0); MONOCYTE% 8.8 % (3.0-12.0); NEUTROPHIL# 2.6 X10e3 (1.5-7.1); NEUTROPHIL% 56.4 % (40-75); PLATELET COUNT 137 X10e3 (140-420); RED BLOOD COUNT 4.56 X10e (3.90-5.60); RED CELL DISTRIBUTION WIDTH 17.8 % (11.0-15.5); WHITE BLOOD COUNT 4.6 X10e3 (4.0-10.5)
[2016-10-21 09:37] LABS: HEMOGLOBIN 14.5 gm/dL (13.0-16.0)
[2016-10-21 09:38] LABS: DIFF IND NO
[2016-10-21 11:55] LABS: CALCIUM SERUM 7.5 mg/dL (8.4-10.2); CARBON DIOXIDE 23 mmol/L (22-31); CHLORIDE 100 mmol/L (100-111); CREATININE SERUM 0.7 mg/dL (0.6-1.4); GLOM FILT RATE Estimated 101.9 mL/min (>60); GLUCOSE FASTING 121 mg/dL (70-110); MAGNESIUM 1.8 mg/dL (1.6-3.0); POTASSIUM 3.3 mmol/L (3.5-5.1); SODIUM 134 mmol/L (135-145)
[2016-10-21 11:59] LABS: BLOOD UREA NITROGEN <5 mg/dL (9-23); BUN/CREATININE RATIO 7.14
[2016-10-22 05:40] LABS: HEMATOCRIT 40.9 % (38.0-50.0); HEMOGLOBIN 13.8 gm/dL (13.0-16.0); MEAN CELL VOLUME 95.5 FL (83-96); MEAN CORPUSCULAR HEMOGLOBIN 32.1 PG (28-34); MEAN CORPUSCULAR HGB CONC 33.6 g/dL (30-36); MEAN PLATELET VOLUME 8.5 FL (6.5-11.5); RED BLOOD COUNT 4.28 X10e (3.90-5.60); RED CELL DISTRIBUTION WIDTH 17.7 % (11.0-15.5); WHITE BLOOD COUNT 4.5 X10e3 (4.0-10.5)
[2016-10-22 06:13] LABS: CALCIUM SERUM 7.6 mg/dL (8.4-10.2); CARBON DIOXIDE 24 mmol/L (22-31); CHLORIDE 105 mmol/L (100-111); CREATININE SERUM 0.6 mg/dL (0.6-1.4); GLOM FILT RATE Estimated 108.6 mL/min (>60); GLUCOSE FASTING 103 mg/dL (70-110); MAGNESIUM 1.7 mg/dL (1.6-3.0); POTASSIUM 3.3 mmol/L (3.5-5.1); SODIUM 136 mmol/L (135-145)
[2016-10-22 06:15] LABS: BLOOD UREA NITROGEN <5 mg/dL (9-23); BUN/CREATININE RATIO 8.33
[2016-10-23 05:22] LABS: BASOPHIL% 0.8 % (0-2.5); EOSINOPHIL# 0.5 X10e3 (0-0.7); EOSINOPHIL% 10.7 % (0.0-7.0); HEMATOCRIT 40.7 % (38.0-50.0); HEMOGLOBIN 13.9 gm/dL (13.0-16.0); LYMPHOCYTE# 1.1 X10e3 (1.0-3.5); LYMPHOCYTE% 23.4 % (17.0-45.0); MEAN CELL VOLUME 95.3 FL (83-96); MEAN CORPUSCULAR HEMOGLOBIN 32.4 PG (28-34); MEAN PLATELET VOLUME 8.6 FL (6.5-11.5); MONOCYTE# 0.4 X10e3 (0-1.0); MONOCYTE% 7.8 % (3.0-12.0); NEUTROPHIL# 2.7 X10e3 (1.5-7.1); NEUTROPHIL% 57.3 % (40-75); PLATELET COUNT 110 X10e3 (140-420); RED BLOOD COUNT 4.27 X10e (3.90-5.60); RED CELL DISTRIBUTION WIDTH 17.5 % (11.0-15.5); WHITE BLOOD COUNT 4.8 X10e3 (4.0-10.5)
[2016-10-23 05:34] LABS: DIFF IND NO
[2016-10-23 07:20] LABS: CALCIUM SERUM 7.6 mg/dL (8.4-10.2); CARBON DIOXIDE 25 mmol/L (22-31); CHLORIDE 106 mmol/L (100-111); CREATININE SERUM 0.6 mg/dL (0.6-1.4); GLOM FILT RATE Estimated 108.6 mL/min (>60); GLUCOSE FASTING 95 mg/dL (70-110); POTASSIUM 3.1 mmol/L (3.5-5.1); SODIUM 137 mmol/L (135-145)
[2016-10-23 07:21] LABS: BLOOD UREA NITROGEN <5 mg/dL (9-23); BUN/CREATININE RATIO 8.33
[2016-10-23] MEDS ORDERED: NEURONTIN600 MG PO (10:01)
[2016-10-23] MEDS ORDERED: XARELTO15 MG PO (10:05)
[2016-10-23] MEDS ORDERED: MULTIVITAMINS1 EAC4 PO (10:07)
[2016-10-23] MEDS ORDERED: METHOCARBAMOL500 MG PO (10:08)
[2016-10-23] MEDS ORDERED: FOLTX PO (10:10)
== END 2016-10-23 11:50 | disposition home health service (06) | DRG 176 ==
LOC: CED 21:07 → CEDOF 10-21 05:15 → CED 10-21 05:19 → CEDOF 10-21 07:48 → C5B 10-21 08:22 → CEDOF 10-21 08:22 → C5B 10-23 11:50
PROVIDERS: Emergency Medicine; Family Medicine; Internal Medicine
PROC: B32TYZZ Computerized Tomography (CT Scan) of Left Pulmonary Artery using Other Contrast (ICD-10-PCS; principal; 2016-10-21)
PROC: B32SYZZ Computerized Tomography (CT Scan) of Right Pulmonary Artery using Other Contrast (ICD-10-PCS; 2016-10-21)
PROC: 30233L1 Transfusion of Nonautologous Fresh Plasma into Peripheral Vein, Percutaneous Approach (ICD-10-PCS; 2016-10-21)
PROC: 30233K1 Transfusion of Nonautologous Frozen Plasma into Peripheral Vein, Percutaneous Approach (ICD-10-PCS; 2016-10-21)
DX: I26.99 Other pulmonary embolism without acute cor pulmonale (principal); E87.1 Hypo-osmolality and hyponatremia; F03.90 Unspecified dementia, unspecified severity, without behavioral disturbance, psychotic disturbance, mood disturbance, and anxiety; F10.239 Alcohol dependence with withdrawal, unspecified; Z91.14 Patient's other noncompliance with medication regimen; G62.1 Alcoholic polyneuropathy; Z79.01 Long term (current) use of anticoagulants; Z90.49 Acquired absence of other specified parts of digestive tract; F17.210 Nicotine dependence, cigarettes, uncomplicated; N63 Unspecified lump in breast; K29.70 Gastritis, unspecified, without bleeding; E87.6 Hypokalemia; M62.3 Immobility syndrome (paraplegic); Z86.718 Personal history of other venous thrombosis and embolism; Y90.1 Blood alcohol level of 20-39 mg/100 ml
CPT/HCPCS: 36415; 71275; 76641; 80048; 80076; 80307; 81003; 82550; 82553; 83690; 83735; 84484; 85025; 85027; 85379; 85610; 85730; 93005; 94640; 96361; 96365; 96375; 97165; 99285; G0480; G8987-GO; G8988-GO; G8989-GO; J1644; J2060; J2405; Q9967

== ENCOUNTER 2016-10-25 13:47 | Emergency (ER) | payer SELFPAY ==
[~2016-10-25] VITALS: Ht 180.3 cm; Wt 77.1 kg
[~2016-10-25 13:47] MED LIST changes: +FOLTX PO; +METHOCARBAMOL500 MG PO; +MULTIVITAMINS1 EAC4 PO
== END 2016-10-25 15:14 | disposition home or self-care (01) ==
LOC: SED 13:47
DX: L03.115 Cellulitis of right lower limb (principal); M79.605 Pain in left leg; Z79.899 Other long term (current) drug therapy
CPT/HCPCS: 99283